=== PATIENT | male | born 1945 | race Caucasian/White ===

== ENCOUNTER 2023-07-14 12:20 | Inpatient (IN) | payer OTHER, SELFPAY ==
[2023-07-14] VITALS (12 sets, daily range): BP systolic 87–164; BP diastolic 52–111; PULSE 72–80; BMI 19.0; BMI 19.1
--- NOTE | 2023-07-14 09:11 | ED.GENMED ---
History of Present Illness
General
Chief Complaint: Fainting/Passed Out
Source: patient and ambulance crew
Exam Limitations: none
Time Seen by Provider: 07/14/23 09:10
History of Present Illness
History of Present Illness:
See MDM
Past History
Past History
ED Past Medical History: Arrthythmia and Other (Parkinson's, restless leg syndrome orthostasis)
ED Past Surgical History: Other (Hernia repair tonsillectomy)
Social History
Tobacco: Non-smoker
Alcohol: None
Drug: None
Personal:
Living: with family
Phy Exam
Physical Exam
Physical Exam:
See MDM
Course
Orders/Labs/Results
Orders:
Orders
07/14/23 09:14
Electrocardiogram (*1) Urgent
Reason for Study: Bradycardia / Tachycardia
EKG- Treatment ONCE
07/14/23 09:20
Diltiazem 125 mg/125 ml Nss [Cardizem] 125 mg in 125 ml IV NOW
Initial dose in mg/hr, then titrate:: 5
Titrate to keep:: Heart rate 80-100 bpm
Titrate by mg/hr:: 5 mg/hr
Frequency of titrations (minutes):: 15
Maximum dose in mg/hr:: 15
Diltiazem HCl [Cardizem] 10 mg IV NOW STA
07/14/23 09:33
Complete Blood Count/With Diff Urgent
Comprehensive Metabolic Panel Urgent
Magnesium Urgent
Manual Differential Urgent
TSH Reflex To Free T4 Urgent
Troponin I Urgent
Abnormal Lab Results
07/14/23
09:33
RBC 4.62 L 10^6/uL
(4.70-6.10)
Plt Count 109 L 10^3/uL
(130-400)
MPV 11.3 H fL
(7.4-10.4)
Lymphocytes (Manual) 19 L %
(20-51)
Monocytes (Manual) 19 H %
(2-9)
BUN 25 H mg/dl
(9-20)
07/14/23 09:33
07/14/23 09:33
Vital Signs
Initial and Last Documented VS:
Initial Vital Signs
Temp Pulse Resp BP Pulse Ox
97.6 F 138 23 164/111 97
07/14/23 09:13 07/14/23 09:13 07/14/23 09:13 07/14/23 09:13 07/14/23 09:13
Last Documented Vital Signs
Temp Pulse Resp BP Pulse Ox
97.6 F 84 16 139/93 97
07/14/23 09:13 07/14/23 10:30 07/14/23 10:30 07/14/23 10:00 07/14/23 10:30
MDM/Problems Addressed
Differential Diagnosis Includes:
HPI and MDM Narrative:
77-year-old male presenting for evaluation of syncope. EMS stating that he has a history of syncope but family was concerned because he had more frequent events overnight. Patient states the symptoms are random
On evaluation patient found to be in A-fib with RVR. Denies chest pain or palpitations. Prior records indicate history of A-fib. Patient does not anticoagulated likely because of his significant fall risk
will start Cardizem
Physical exam
General: weak and frail
HEENT: protecting airway
Neck: appears supple
CV: No evidence of cyanosis. Tachycardic and irregular
Resp: No accessory muscle use
Abd: Non-distended
Extremities: No deformities
Neuro: alert
Psych: Normal affect
Skin: Intact
Problems Addressed including Acute and Chronic Conditions affecting care:
1. A-fib with RVR
Acuity: acute
Prognosis: unstable
Details: Will start Cardizem. Likely the source of syncope
Updates
Patient remains in A-fib while on the Cardizem drip. Will admit with concern for cardiogenic syncope
Patient is not on blood thinners and not a candidate for bedside cardioversion
Differential Diagnosis (but not limited to): Cardiogenic syncope, polypharmacy
Testing considered: D-dimer
Drug therapy (if applicable): OTC meds, please see d/c instruction regarding Rx drugs
Amount and/or Complexity of Data Reviewed
Clinical info obtained from: Patient
External data reviewed: N/A
Labs I independently reviewed (but not limited to): Electrolytes within normal limits
Radiology: N/A,
Pulse Ox: not hypoxic
EKG independently reviewed: A-fib with RVR LVH, no STEMI
Supercharger Mechanic: A-fib
Critical Care: The high probability of a clinically significant, sudden or life threatening deterioration of the cardiovascular system(s) required my full and direct attention, intervention and personal management. The aggregate critical care time
was 33 minutes. This time is in addition to time spent performing reported procedures but includes the following:
[x] Data Review and interpretation
[x] Patient assessment and monitoring of vital signs
[x] Documentation
[x] Medication orders and management
Risk of Complication:
Social Determinants of health: Good social support
Discussed with other providers: Hospitalist
Escalation of Care includes Admit/Obs: Given the rapid A-fib and concern for cardiogenic syncope, will continue IV Cardizem and admit
Occasional wrong word or 'sound a like' substitutions may have occurred due to the inherent limitations of voice recognition software. Read the chart carefully and recognize, using context, where substitutions have occurred.
*Critical Care Note
Total Time (30-74mins, 75-104mins- exclusive of procedures): 33 min
ED Attending Note
-
Portions of this chart may have been created with voice recognition software.� Occasional wrong word or��sound alike� substitutions may have occurred due to the inherent limitations of voice recognition software.
Discharge Plan
Departure
Patient Disposition: Admit
Date of Disposition: 07/14/23
Time of Disposition: 11:06
Admit to: Telemetry
Presentation/result/management discussed w/ accepting MD/DO: Hospitalist
Discharge Problem:
A-fib, Syncope
Prescriptions:
No Action
magnesium oxide 500 MG tablet
500 mg PO QPM
ascorbic acid (vitamin C) [Vitamin C] 500 mg Tablet
500 mg PO DAILY
cholecalciferol (vitamin D3) [Vitamin D3] 125 mcg (5,000 unit) Tablet
125 mcg PO DAILY
cyanocobalamin (vitamin B-12) [Vitamin B-12] 1,000 mcg Tablet
1,000 mcg PO DAILY
calcium carbonate 500 mg calcium (1,250 mg) Tablet
500 mg PO DAILY
diclofenac potassium 50 mg tablet
50 mg PO BID PRN (Reason: restless leg pain)
carbidopa-levodopa 25-100 mg tablet
1 tab PO 6XD
docusate sodium [Colace] 100 mg Capsule
100 mg PO HS
midodrine 5 mg Tablet
5 mg PO TID@0800,1300,1800 Qty: 90 0RF
tramadol 50 mg Tablet
25 mg PO [id number] PRN (Reason: mod severe pain) Qty: 15 0RF
ropinirole 2 mg Tablet
2 mg PO HS Qty: 30 0RF
fludrocortisone 0.1 mg Tablet
0.1 mg PO DAILY Qty: 30 0RF
Referrals:
Rashard Zhu MD [Family Provider] -
Interventions
Interventions:
*Risk Screen - Suicide Last Done: 07/14/23 09:29
*Neglect/Abuse Screening Last Done: 07/14/23 09:29
ED- Fall Risk Assessment Last Done: 07/14/23 09:29
*ED COVID-19 Vaccine History Last Done: 07/14/23 09:29
ED- Cardiac Assessment Last Done: 07/14/23 09:12
Discharge Date and Time
Print Language: GUYANESE
[2023-07-14] MEDS: CARDIZEM 10 MG IV (09:37)
[2023-07-14] MEDS: CARDIZEM 125 IV (09:39)
[2023-07-14 09:43] LABS: Hematocrit 40.2 % (39.0-52.0); Hemoglobin 13.6 g/dL (13.0-18.0); Mean Corp Hgb Conc. 33.8 g/dL (33.0-37.0); Mean Corpuscular Hgb 29.4 pg (27.0-31.0); Red Blood Cell Count 4.62 10^6/uL (4.70-6.10); Red Cell Dist. Width 13.6 % (11.5-14.5); White Blood Cell Count 5.3 10^3/uL (4.8-10.8)
[2023-07-14 09:56] LABS: ALT (SGPT) < 10 U/L (0-50); AST (SGOT) 29 U/L (17-59); Albumin 4.9 g/dl (3.5-5.0); Alkaline Phosphatase 113 U/L (38-126); Blood Urea Nitrogen 25 mg/dl (9-20); Carbon Dioxide 26 mmol/L (22-30); Chloride 103 mmol/L (98-107); Estimated Creatinine Clearance 45 ml/min; Glucose 89 mg/dl (70-99); Magnesium 2.3 mg/dl (1.6-2.3); Potassium 4.2 mmol/L (3.5-5.1); Sodium 140 mmol/L (135-145); Total Protein 7.9 g/dl (6.3-8.2); eGFR > 60.00
[2023-07-14 10:04] LABS: Troponin I 0.016 ng/ml
[2023-07-14 10:45] LABS: Mean Platelet Volume 11.3 fL (7.4-10.4); Platelet Count 109 10^3/uL (130-400)
[2023-07-14 10:46] LABS: Absolute Neutrophils -Man Diff 3.2 10^3/uL (1.4-6.5); Band Neutrophils 0 % (0-3); Eosinophils 1 % (0-6); Lymphocytes 19 % (20-51); Monocytes 19 % (2-9); Segmented Neutrophils 61 % (42-75)
[2023-07-14 10:47] LABS: Normal RBC Morphology No; Platelets Checked YES
[2023-07-14 10:48] LABS: Anisocytosis Slight; Microcytosis FEW
[2023-07-14 10:49] LABS: Acanthocytes FEW; Target Cells FEW
[2023-07-14 10:50] LABS: Ovalocytes FEW; Schistocytes RARE
[2023-07-14 10:54] LABS: Total Cells Counted 100
--- NOTE | 2023-07-14 12:33 | PHANOTE ---
07/14/2023, [facility] rec tech, spoke to pt. and spouse to obtain pt.'s med. history; per spouse and pt., pt. is taking Myrbetriq 25 mg daily; however, could not confirm with pt.'s pharmacy or [facility] records.
[2023-07-14] MEDS: REQUIP 2 MG PO ×2 (12:55→21:06)
--- NOTE | 2023-07-14 13:57 | CON.CAR ---
Consultation
Consultation Request
Date/Time Consultation Requested: 07/14/2023
Date/Time Consultation Performed: 07/14/2023
Requesting Provider: Dr. Beltran
Performing Provider: Dr. Ortiz
Reason for Consultation: Atrial fibrillation/ syncope
Medical History
-
Chief Complaint: Syncope, rapid atrial fibrillation
History of Present Illness:
I had the pleasure to meet Ra Bowser for evaluation of rapid atrial fibrillation after a syncopal episode at home prompting ER evaluation and admission. Ra follows with my colleague, Dr. Toro with a history of orthostatic
hypotension/autonomic dysfunction with underlying Parkinson's. He also has a history of paroxysmal atrial fibrillation first noted in April 2022 not deemed to be an anticoagulation candidate secondary to frequent falls. He also has
pancytopenia, prostate calcifications, GERD, and BPH. He is also followed with neurology for orthostasis and has been maintained on midodrine 5 mg TID as well as fludrocortisone 0.1 mg daily. He reports a fall at home with pain around his rib cage
but no other joint pain or injury. He does live at home with his and daughter in a two-story home with a chairlift and a first-floor bathroom. In the emergency room he was found to be in rapid atrial fibrillation with a heart rate of 131 bpm
placed on IV Cardizem drip. Fortunately he did convert to sinus rhythm and Cardizem drip was discontinued. He denies chest pain suggestive of angina or shortness of breath. No headache or blurred vision. No focal weakness. No abdominal pain.
No fevers or chills. No recent URI or GI illnesses. He reports that his oral intake/hydration has been good.
Past medical history: Parkinson's disease, autonomic dysfunction with orthostatic hypotension, frequent falls, hyperlipidemia, GERD, BPH, history of paroxysmal atrial fibrillation, pancytopenia
Past surgical history: In utero hernia repair, partial left hip replacement, detached retina surgery, T&A
Past Medical History
Past Medical History: Other (See HPI)
Past Surgical History: Other (See HPI)
Social History
Tobacco: Non-Smoker
Alcohol: None
Drug: None
Personal:
Living: With Family
Employment: Retired
Family History
Family History: Reviewed & Not Pertinent
Allergies / Home Medications
Allergy/AdvReac Type Severity Reaction Status Date / Time
Penicillins Allergy rash on Verified 07/14/23 09:21
chest
�Medication �Instructions �Recorded �Confirmed �Type
magnesium oxide 500 mg PO QPM 07/23/18 07/14/23 History
ascorbic acid (vitamin C) 500 mg 500 mg PO DAILY 12/11/21 07/14/23 History
tablet (Vitamin C)
calcium carbonate 500 mg PO NOON 05/17/22 07/14/23 History
carbidopa 25 mg-levodopa 100 mg 1 tab PO QID 05/17/22 07/14/23 History
tablet
cyanocobalamin (vitamin B-12) 1,000 mcg PO DAILY PRN supplement 05/17/22 07/14/23 History
1,000 mcg tablet (Vitamin B-12)
docusate sodium 100 mg capsule 100 mg PO DAILY 06/05/22 07/14/23 History
(Colace)
acetaminophen 500 mg tablet 1,000 mg PO DAILYPRN PRN mild pain 07/14/23 07/14/23 History
(Tylenol Extra Strength)
carbidopa 25 mg-levodopa 100 mg 1 tab PO DAILYPRN PRN parkinson's 07/14/23 07/14/23 History
tablet disease
fludrocortisone 0.1 mg tablet 0.1 mg PO HS 07/14/23 07/14/23 History
midodrine 2.5 mg tablet 2.5 mg PO TID 07/14/23 07/14/23 History
midodrine 5 mg tablet 5 mg PO TID 07/14/23 07/14/23 History
mirabegron 25 mg tablet,extended 25 mg PO DAILY 07/14/23 History
release 24 hr (Myrbetriq)
ropinirole 3 mg tablet 3 mg PO HS 07/14/23 07/14/23 History
Review of Systems
-
History Source: Patient
All other systems: Negative unless noted
Constitutional: No Symptoms
EENT: No Symptoms
Respiratory: No Symptoms
Cardiac: Syncope
Abdomen/GI: No Symptoms
: No Symptoms
Skin: No Symptoms
Neurological: Dizzy and Weakness
Physical Exam
Vital Signs
Temp Pulse Resp BP Pulse Ox
97.6 F 67 22 108/65 97
07/14/23 09:13 07/14/23 13:30 07/14/23 13:30 07/14/23 13:00 07/14/23 11:15
Lab Results
07/14/23 09:33
07/14/23 09:33
Troponin I 0.016 ng/ml 07/14/23 09:33
Physical Exam
General: Other (Frail 77-year-old gentleman appears older than stated age. Marked thoracic kyphosis. Comfortable and jovial at bedside)
HEENT: Normocephalic, Anicteric and Moist Mucous Membranes
Respiratory: Other (Bronchovesicular breath sounds are clear. He is complaining of rib pain without ecchymosis or crepitus on exam)
Cardiac: S1/S2 and Regular Rhythm; Negative Murmur, Rub or Peripheral Edema
GI: Soft, Non Tender, Non Distended and Normal Bowel Sounds
Skin: Warm; Negative Rash
Neuro: AO x 3
Psych: Calm
Impression / Plan
-
Straw Hat Plunger Operator: Dr. Toro
Neurologist: Dr. Hdez
Impression:
Syncope in the setting of rapid atrial fibrillation and known orthostatic hypotension
Recurrent rapid atrial fibrillation status post conversion on Cardizem 07/14/2023
-Not oral anticoagulation candidate secondary to recurrent falls
Parkinson's disease with autonomic dysfunction
Significant orthostatic hypotension
Frequent falls
Hyperlipidemia
BPH
Pancytopenia
Restless leg syndrome
Plan:
Rapid atrial fibrillation with history of PAF
-currently in sinus rhythm with conversion on IV Cardizem
-IV Cardizem drip discontinued
-Unfortunately he will not tolerate AV barbi blocking agents given low blood pressures with orthostatic hypotension
-Not an anticoagulation candidate secondary to frequent falls
-TSH within normal limit
Syncope at home likely related to rapid atrial fibrillation with orthostatic hypotension
-Will continue midodrine but increase to 10 mg TID
-Continue fludrocortisone 0.1 mg daily
-Had a recent echocardiogram 06/06/2022 with normal LV size and systolic function and EF of 60 to 65% with no significant valve abnormalities and no pericardial effusion. Will not repeat echocardiogram at this time
Rib chest wall pain following fall
-Will get chest and rib x-ray in the morning
Parkinson's with autonomic dysfunction/restless leg syndrome
-Patient follows with Dr. Hdez
Autonomic dysfunction with orthostatic hypotension
-Increase midodrine and continue fludrocortisone
-Monitor orthostatic symptoms
Pancytopenia with relatively stable hemoglobin and platelets
Data Reviewed
-
EKG: Tracing Personally Visualized and interpreted
Labs: Labs Reviewed by me
Old Records: Reviewed
[2023-07-14 14:18] LABS: Troponin I 0.016 ng/ml
--- NOTE | 2023-07-14 14:54 | HPS.HSE ---
Family Physician
-
Family Physician: Rashard Zhu
Chief Complaint
-
Syncope
History of Present Illness
77 year old male with advanced Parkinson disease and ?dementia, restless leg syndrome, afib, recurrent issues with syncope most likely 2/2 to autonomic dysfunction, now presenting for recurrent syncope. No reported head strike. Patient's family
was concerned as patient was having recurrent issues with syncope overnight. Denies chest pain, palpitations. Found to be in A-fib with RVR with HR of 138; Otherwise normotensive; afebrile. labs grossly unremarkable. TSH WNL. patient was started
on cardizem ggt and cardiology was consulted.
Medical History
Past Medical History
Past Medical History: Reports Arrhythmia and Other (Paroxysmal atrial fibrillation. Parkinson's disease. Restless leg syndrome.)
Past Surgical History: Reports Other
Social History
Tobacco: Non-smoker
Alcohol: None
Drug: None
Personal:
Living: With Family
Family History
Family History: Not pertinent
Allergies / Home Medications
Allergies reflects when Allergies were last updated in [employer].
Home Medications with original date entered in [employer]
Allergy/Medication List:
Allergies
Allergy/AdvReac Type Severity Reaction Status Date / Time
Penicillins Allergy rash on Verified 06/05/22 12:57
chest
Home Medications
magnesium oxide 500 mg tablet 500 mg PO QPM 07/23/18
ascorbic acid (vitamin C) 500 mg tablet (Vitamin C) 500 mg PO DAILY 12/11/21
cholecalciferol (vitamin D3) 125 mcg (5,000 unit) tablet (Vitamin D3) 125 mcg PO DAILY 12/11/21
calcium carbonate 500 mg calcium (1,250 mg) tablet 500 mg PO DAILY 05/17/22
carbidopa 25 mg-levodopa 100 mg tablet 1 tab PO 6XD 05/17/22
cyanocobalamin (vitamin B-12) 1,000 mcg tablet (Vitamin B-12) 1,000 mcg PO DAILY 05/17/22
diclofenac potassium 50 mg tablet 50 mg PO BID PRN restless leg pain 05/17/22
docusate sodium 100 mg capsule (Colace) 100 mg PO HS 06/05/22
Review of Systems
-
History Source: Patient
A 12 point ROS was completed and negative except as noted: Yes
Physical Exam
Vital Signs
Vital Signs
Temp Pulse Resp BP Pulse Ox
97.7 F 65 20 121/64 97
07/14/23 14:13 07/14/23 14:13 07/14/23 14:13 07/14/23 14:13 07/14/23 14:13
Physical Exam
General: Well Developed and Well Nourished
HEENT: NormoCephalic and Anicteric
Respiratory: Clear
Cardiac: Irregular Rhythm
GI: Non Tender
Rectal: Brown
Musculoskeletal: No Clubbing
Skin: Warm and Dry
Neuro: Awake, Alert, Oriented and AO x 3
Hematologic/Lymphatic: No Lymphadenopathy
Psych: Calm
Laboratory Results
-
07/14/23 09:33
07/14/23 09:33
Laboratory Results
Total Bilirubin 1.0 mg/dl (0.2-1.3) 07/14/23 09:33
AST 29 U/L (17-59) 07/14/23 09:33
ALT < 10 U/L (0-50) 07/14/23 09:33
Alkaline Phosphatase 113 U/L (38-126) 07/14/23 09:33
Troponin I 0.016 ng/ml 07/14/23 13:49
Data Reviewed
-
Lab Data: Labs Reviewed by me
Impression/Plan
-
IMPRESSION:
77 year old male with advanced Parkinson disease and dementia, restless leg syndrome, afib, recurrent issues with syncope most likely 2/2 to autonomic dysfunction, now presenting for recurrent syncope. Found to be in afib with rvr.
PLAN:
#Recurrent Syncope
#history of orthostatic hypotension - exacerbated by autonomic dysfunction in pt with advanced Parkinson's
-possibly exacerbated by Afib with RVR
-cards consulted
-cardizem was attempted in the past but not tolerated due to worsening orthostatics
-Stop cardizem and f/u with cards recs
-Orthostatics
-Abdominal binder
-Cont Midodrine
-cont florinef
-cont tele monitoring
-pt/ot
#Paroxysmal Afib with RVR
-f/u cards recs
-stop Cardizem and monitor
-if recurrent, may opt for amio
-not on anticoag 2/2 to frequent falls and pancytopenia
#DVT ppx
HSQ
Chronc Hx
Advanced Parkinson's disease.
Restless leg syndrome.
Prior history of orthostasis.
Kyphoscoliosis
[2023-07-14] MEDS: HEPARIN 5000 UNITS SC ×2 (17:44→23:29)
[2023-07-14] MEDS: ProAmatine 5 MG PO (17:44)
[2023-07-14] MEDS: SINEMET 25-100 1 TABLET PO ×2 (17:44→21:06)
[2023-07-14] MEDS: ProAmatine PO (17:44)
[2023-07-14] MEDS: FLORINEF 0.1 MG PO (17:44)
[2023-07-14 22:03] LABS: Troponin I < 0.012 ng/ml
[2023-07-15] VITALS (9 sets, daily range): BP systolic 88–183; BP diastolic 54–106; PULSE 67–83
[2023-07-15] MEDS: SINEMET 25-100 1 TABLET PO ×6 (05:36→21:05)
[2023-07-15 05:49] LABS: Hematocrit 38.3 % (39.0-52.0); Mean Corp Hgb Conc. 33.9 g/dL (33.0-37.0); Mean Corpuscular Hgb 29.5 pg (27.0-31.0); Mean Platelet Volume 11.3 fL (7.4-10.4); Platelet Count 101 10^3/uL (130-400); Red Cell Dist. Width 13.4 % (11.5-14.5); White Blood Cell Count 3.7 10^3/uL (4.8-10.8)
[2023-07-15 06:29] LABS: Troponin I < 0.012 ng/ml
[2023-07-15 06:55] LABS: Blood Urea Nitrogen 29 mg/dl (9-20); Calcium 9.8 mg/dl (8.4-10.2); Carbon Dioxide 28 mmol/L (22-30); Chloride 103 mmol/L (98-107); Estimated Creatinine Clearance 45 ml/min; Glucose 90 mg/dl (70-99); Magnesium 2.4 mg/dl (1.6-2.3); Potassium 3.7 mmol/L (3.5-5.1); Sodium 139 mmol/L (135-145); eGFR > 60.00
[2023-07-15 07:22] LABS: TSH Reflex To Free T4 0.61 uIU/ml (0.47-4.68)
[2023-07-15] MEDS: FLORINEF 0.1 MG PO (08:49)
[2023-07-15] MEDS: ProAmatine PO ×2 (08:54→13:10)
[2023-07-15] MEDS: HEPARIN 5000 UNITS SC ×2 (09:59→16:12)
[2023-07-15] MEDS: OSCAL CAL 500 500 MG PO (12:16)
--- NOTE | 2023-07-15 14:17 | W.PN.HOSP.TC ---
Addendum entered and electronically signed by Patrice Beltran MD 07/15/23 14:22:
Nondisplaced subacute partially healed anterolateral right ninth rib fracture
� Pain control
� Follow-up outpatient
Original Note:
Today's Communication/Plan
-
abdominal binder
pt/ot
cards recs
cont midodrine at higher dose
Assessment / Plan
Assessment / Plan
Physical Exam
General: Well Developed and Well Nourished
HEENT: NormoCephalic and Anicteric
Respiratory: Clear
Cardiac: Irregular Rhythm
GI: Non Tender
Rectal: Brown
Musculoskeletal: No Clubbing
Skin: Warm and Dry
Neuro: Awake, Alert, Oriented and AO x 3
Hematologic/Lymphatic: No Lymphadenopathy
Psych: Calm
77 year old male with advanced Parkinson disease and dementia, restless leg syndrome, afib, recurrent issues with syncope most likely 2/2 to autonomic dysfunction, now presenting for recurrent syncope. Found to be in afib with rvr.
PLAN:
#Recurrent Syncope
#history of orthostatic hypotension - exacerbated by autonomic dysfunction in pt with advanced Parkinson's
-possibly exacerbated by Afib with RVR
-cards consulted
-cardizem was attempted in the past but not tolerated due to worsening orthostatics
-Stop cardizem and f/u with cards recs
-Orthostatics
-Abdominal binder
-Cont Midodrine - increase to 10mg tid
-cont florinef
-cont tele monitoring
-pt/ot
#Paroxysmal Afib with RVR
-f/u cards recs
-stop Cardizem and monitor
-if recurrent, may opt for amio
-not on anticoag 2/2 to frequent falls and pancytopenia
#DVT ppx
HSQ
Chronc Hx
Advanced Parkinson's disease.
Restless leg syndrome.
Prior history of orthostasis.
Kyphoscoliosis
Anticipated Discharge: Within 24 hours
Subjective/Interval History
-
Date of Service: July 15, 2023
BPs improved, bp slightly higher with inc dose midodrine
Objective Data
-
Labs:
Laboratory Results
07/15/23
05:39
WBC 3.7 L
Hgb 13.0
Hct 38.3 L
Plt Count 101 L
Sodium 139
Potassium 3.7
Chloride 103
Carbon Dioxide 28
BUN 29 H
Creatinine 1.0
Glucose 90
Calcium 9.8
Vital Signs:
Vital Signs
Temp Pulse Resp BP Pulse Ox
97.4 F 78 16 139/73 97
07/15/23 11:00 07/15/23 13:10 07/15/23 11:00 07/15/23 13:10 07/15/23 11:00
I&O
07/14/23 07/15/23 07/16/23
06:59 06:59 06:59
Intake Total 960 / 960
Output Total 505 / 505
Balance 455 / 455
Review of Systems
-
History Source: Patient
All other systems: Not reviewed unless documented
Physical Exam
-
General: Well Developed and No Apparent Distress
HEENT: Normocephalic, Atraumatic and Moist Mucous Membranes
Respiratory: Clear to Auscultation
Cardiac: Regular Rhythm and S1/S2; Negative Murmur, Rub or Gallop
GI: Soft, Nontender, Nondistended and Normal Bowel Sounds; Negative Organomegaly
Rectal: Deferred by Provider
Musculoskeletal: No Clubbing, No Cyanosis and No Edema
Skin: Negative Rash
Neuro: Nonfocal/Grossly Intact
Data Reviewed
-
Diagnostic Radiology: Image personally visualized and interpreted and Report Reviewed by me
Labs: Labs Reviewed by me (BMP, magnesium)
[2023-07-15] MEDS: TYLENOL 1000 MG PO (16:21)
--- NOTE | 2023-07-15 16:32 | W.PN.CARDCBS ---
Today's Communication / Plan
-
Cont Midodrine, may need to accept some permissive hypertension
Impression / Plan
-
.
Cath Lab Radiological Technologist: Dr. Toro
Neurologist: Dr. Hdez
Impression:
Syncope in the setting of rapid atrial fibrillation and known orthostatic hypotension
Recurrent rapid atrial fibrillation status post conversion on Cardizem 07/14/2023
-Not oral anticoagulation candidate secondary to recurrent falls
Parkinson's disease with autonomic dysfunction
Significant orthostatic hypotension
Frequent falls
Hyperlipidemia
BPH
Pancytopenia
Restless leg syndrome
Plan:
>Rapid atrial fibrillation with history of PAF
-Remains in sinus off IV Cardizem
-He has not been able to tolerate AV barbi blocking agents given low blood pressures with orthostatic hypotension
-Not an anticoagulation candidate secondary to frequent falls
-TSH within normal limit
>Syncope at home likely related to rapid atrial fibrillation with orthostatic hypotension
-Will continue midodrine, increased to 10 mg TID
-Continue fludrocortisone 0.1 mg daily
-Recent echocardiogram 06/06/2022 with normal LV size and systolic function and EF of 60 to 65% with no significant valve abnormalities and no pericardial effusion. No need to repeat echo
-abdominal binder
-check orthostatic vitals
-Will have to accept some permissive HTN
>Rib chest wall pain following fall
-Rib fx noted. Medical therapy.
>Parkinson's with autonomic dysfunction/restless leg syndrome
-Patient follows with Dr. Hdez
>Pancytopenia with relatively stable hemoglobin and platelets
>Restless leg syndrome
-Cont requip. tx as per primary service.
Progress Note - Cath Lab Radiological Technologist
Subjective
Date of Service: July 15, 2023
Pt seen and examined. No cp or dyspnea.
Objective
Labs:
07/15/23 05:39
07/15/23 05:39
Labs
Hgb 13.0 g/dL (13.0-18.0) 07/15/23 05:39
Hct 38.3 % (39.0-52.0) L 07/15/23 05:39
Plt Count 101 10^3/uL (130-400) L 07/15/23 05:39
Sodium 139 mmol/L (135-145) 07/15/23 05:39
Potassium 3.7 mmol/L (3.5-5.1) 07/15/23 05:39
BUN 29 mg/dl (9-20) H 07/15/23 05:39
Creatinine 1.0 mg/dL (0.7-1.3) 07/15/23 05:39
Glucose 90 mg/dl (70-99) 07/15/23 05:39
Troponins
07/14/23 07/14/23 07/14/23
09:33 13:49 21:32
Troponin I 0.016 0.016 < 0.012 D
07/15/23
05:39
Troponin I < 0.012
Vital Signs and I&O:
Vital Signs
Temp Pulse Resp BP Pulse Ox
97.9 F 79 18 183/97 97
07/15/23 15:00 07/15/23 15:00 07/15/23 15:00 07/15/23 15:00 07/15/23 15:00
Vital Signs
Temp Pulse Resp BP Pulse Ox
97.9 F 79 18 183/97 97
07/15/23 15:00 07/15/23 15:00 07/15/23 15:00 07/15/23 15:00 07/15/23 15:00
Intake & Output
07/13/23 07/14/23 07/15/23 07/16/23
06:59 06:59 06:59 06:59
Intake Total 960 / 960
Output Total 505 / 505
Balance 455 / 455
Physical Exam
Physical Exam
General: No acute distress, AAOX3, appears chronically ill
Neck: Negative JVD
Heart: Regular, Negative S3 positive S1/S2, Negative S4, No murmur
Lungs: CTA b/l, negative wheezes/rales/rhonchi
Abd: Positive BS, NT/ND, neg rebound/rigidity/guarding
Ext: Negative cyanosis/clubbing/edema
Neuro: nonfocal
--- NOTE | 2023-07-15 16:41 | CM ---
Alert awake oriented patient who lives with his Makayla in 2 story home with 2 steps to enter and 13 steps to bath/bedroom. He has walker , wc,stair glide.He is assisted all activities of daily living.Advance Directive given.
[facility] hx
Pharmacy [facility]
PCP Dr Zhu
PLAN Will need PT/OT for dc plan
[2023-07-15] MEDS: ProAmatine 10 MG PO (18:40)
[2023-07-15] MEDS: REQUIP 2 MG PO (21:05)
[2023-07-16] VITALS (7 sets, daily range): BP systolic 106–183; BP diastolic 53–91; PULSE 80–82
[2023-07-16] MEDS: HEPARIN 5000 UNITS SC ×4 (00:27→23:32)
[2023-07-16] MEDS: SINEMET 25-100 1 TABLET PO ×6 (05:04→21:20)
[2023-07-16 05:37] LABS: Hematocrit 36.8 % (39.0-52.0); Hemoglobin 12.5 g/dL (13.0-18.0); Mean Corpuscular Hgb 29.3 pg (27.0-31.0); Mean Corpuscular Volume 86.4 fL (80.0-94.0); Mean Platelet Volume 10.9 fL (7.4-10.4); Platelet Count 100 10^3/uL (130-400); Red Blood Cell Count 4.26 10^6/uL (4.70-6.10); Red Cell Dist. Width 13.4 % (11.5-14.5); White Blood Cell Count 3.3 10^3/uL (4.8-10.8)
[2023-07-16 06:05] LABS: Blood Urea Nitrogen 31 mg/dl (9-20); Calcium 9.6 mg/dl (8.4-10.2); Carbon Dioxide 31 mmol/L (22-30); Chloride 103 mmol/L (98-107); Estimated Creatinine Clearance 45 ml/min; Glucose 94 mg/dl (70-99); Magnesium 2.2 mg/dl (1.6-2.3); Potassium 3.8 mmol/L (3.5-5.1); Sodium 138 mmol/L (135-145); eGFR > 60.00
[2023-07-16] MEDS: FLORINEF 0.1 MG PO (09:09)
[2023-07-16] MEDS: ProAmatine PO ×2 (09:10→12:47)
[2023-07-16] MEDS: REQUIP 2 MG PO ×2 (10:32→21:20)
[2023-07-16] MEDS: OSCAL CAL 500 500 MG PO (10:51)
[2023-07-16] MEDS: SENOKOT-S 1 TABLET PO (10:51)
[2023-07-16] MEDS: PACERONE 400 MG PO (11:28)
--- NOTE | 2023-07-16 13:15 | W.PN.HOSP.TC ---
Today's Communication/Plan
-
reduce midodrine
f/u cards recs for afib
Assessment / Plan
Assessment / Plan
Physical Exam
General: Well Developed and Well Nourished
HEENT: NormoCephalic and Anicteric
Respiratory: Clear
Cardiac: Irregular Rhythm
GI: Non Tender
Rectal: Brown
Musculoskeletal: No Clubbing
Skin: Warm and Dry
Neuro: Awake, Alert, Oriented and AO x 3
Hematologic/Lymphatic: No Lymphadenopathy
Psych: Calm
77 year old male with advanced Parkinson disease and dementia, restless leg syndrome, afib, recurrent issues with syncope most likely 2/2 to autonomic dysfunction, now presenting for recurrent syncope. Found to be in afib with rvr.
PLAN:
#Recurrent Syncope
#history of orthostatic hypotension - exacerbated by autonomic dysfunction in pt with advanced Parkinson's
-possibly exacerbated by Afib with RVR
-cards consulted
-cardizem was attempted in the past but not tolerated due to worsening orthostatics
-Stop cardizem and f/u with cards recs
-Orthostatics
-Abdominal binder
-Cont Midodrine - reduce to 5mg TID due to >SBP 180
-cont florinef
-cont tele monitoring
-pt/ot
#Paroxysmal Afib with RVR
-f/u cards recs
-stop Cardizem and monitor
-if recurrent, may opt for amio
-not on anticoag 2/2 to frequent falls and pancytopenia
#DVT ppx
HSQ
Chronc Hx
Advanced Parkinson's disease.
Restless leg syndrome.
Prior history of orthostasis.
Kyphoscoliosis
Anticipated Discharge: Within 24 hours
Subjective/Interval History
-
Date of Service: July 16, 2023
afib with rvr this am; htn - reduce midodrine
Objective Data
-
Labs:
Laboratory Results
07/16/23
05:13
WBC 3.3 L
Hgb 12.5 L
Hct 36.8 L
Plt Count 100 L
Sodium 138
Potassium 3.8
Chloride 103
Carbon Dioxide 31 H
BUN 31 H
Creatinine 1.0
Glucose 94
Calcium 9.6
Vital Signs:
Vital Signs
Temp Pulse Resp BP Pulse Ox
98.5 F 137 18 135/89 96
07/16/23 11:00 07/16/23 11:28 07/16/23 11:00 07/16/23 12:47 07/16/23 11:00
I&O
07/15/23 07/16/23 07/17/23
06:59 06:59 06:59
Intake Total 960 / 960 660 / 660
Output Total 505 / 505 675 / 675
Balance 455 / 455 -15 / -15
Review of Systems
-
History Source: Patient
All other systems: Not reviewed unless documented
Physical Exam
-
General: Well Developed and No Apparent Distress
HEENT: Normocephalic, Atraumatic and Moist Mucous Membranes
Respiratory: Clear to Auscultation
Cardiac: Regular Rhythm and S1/S2; Negative Murmur, Rub or Gallop
GI: Soft, Nontender, Nondistended and Normal Bowel Sounds; Negative Organomegaly
Rectal: Deferred by Provider
Musculoskeletal: No Clubbing, No Cyanosis and No Edema
Skin: Negative Rash
Neuro: Nonfocal/Grossly Intact
Data Reviewed
-
Diagnostic Radiology: Image personally visualized and interpreted and Report Reviewed by me
Labs: Labs Reviewed by me
--- NOTE | 2023-07-16 13:39 | VNURNOTE ---
Home Health Liaison met with patient at 1130 to discuss [facility] nurse/therapy, visits, schedule and homebound status. Patient is agreeable and understands that visits at home will be 2-3 x per week to assess and teach medical management.
[facility] brochure provided with contact information. Patient is aware that [facility] will contact him for start of care in 1-2 days after discharge from .
[facility] referral completed in [facility].
--- NOTE | 2023-07-16 14:40 | VNURNOTE ---
Call to patient's Makayla to discuss [facility] and answer questions.
Makayla is aware to call [facility] to make sure patient is not current, he previously has had PT and she thinks it has ended but will call [facility] to confirm.
[2023-07-16] MEDS: PACERONE 200 MG PO ×2 (16:01→21:20)
--- NOTE | 2023-07-16 16:56 | CM ---
PT said home with PT.
Spoke with she requested [facility] Cheryl notified of referral.
will drive him home.
Hx Parkinson ,Dementia ,restless legs
PLAN Home with [facility] if accepted
[2023-07-16] MEDS: ProAmatine 5 MG PO (17:18)
--- NOTE | 2023-07-16 18:55 | W.PN.CARDCBS ---
Today's Communication / Plan
-
Increase oral fluid intake
Decrease midodrine
Start amiodarone for recurrent atrial fibrillation today
Prognosis guarded
Impression / Plan
-
Impression:
Syncope in the setting of rapid atrial fibrillation and known orthostatic hypotension
Recurrent rapid atrial fibrillation status post conversion on Cardizem 07/14/2023
-Not oral anticoagulation candidate secondary to recurrent falls
Parkinson's disease with autonomic dysfunction
Significant orthostatic hypotension
Frequent falls
Hyperlipidemia
BPH
Pancytopenia
Restless leg syndrome
Plan:
He is now back in atrial fibrillation with a rapid ventricular response. Options are limited. Will start low-dose amiodarone. Hopefully to avoid symptomatic bradycardia. Not an anticoagulation candidate. Would be desirable to avoid pacemaker
implantation.
Will encourage p.o. intake. Given cachexia should he also be on Ensure etc.? I asked nurses to increase water intake by 32 ounces a day
He was hypertensive this morning. Will reduce midodrine back to baseline dose of 7.5 mg 3 times daily. However, orthostasis may become an issue necessitating accepting marked hypertension.
Long-term prognosis limited in the face of profound autonomic failure.
Progress Note - Boarding House Manager
Subjective
Date of Service: July 16, 2023:
Patient was hypertensive this morning, has been receiving midodrine 10 mg 3 times daily. Also still on fludrocortisone, receiving ropinirole 2 mg at bedtime which can exacerbate orthostasis, still requiring Sinemet as well also a contributor to
orthostasis, had recurrent atrial fibrillation today
Allergies to penicillins
Outpatient medications reviewed, midodrine was 7.5 3 times daily
PMH/PSH/SH/FH: Reviewed
Review of systems negative except as noted above
Hemoglobin 12.5, CO2 31 BUN and creatinine 31 and 1.0
Objective
Labs:
07/16/23 05:13
07/16/23 05:13
Labs
Hgb 12.5 g/dL (13.0-18.0) L 07/16/23 05:13
Hct 36.8 % (39.0-52.0) L 07/16/23 05:13
Plt Count 100 10^3/uL (130-400) L 07/16/23 05:13
Sodium 138 mmol/L (135-145) 07/16/23 05:13
Potassium 3.8 mmol/L (3.5-5.1) 07/16/23 05:13
BUN 31 mg/dl (9-20) H 07/16/23 05:13
Creatinine 1.0 mg/dL (0.7-1.3) 07/16/23 05:13
Glucose 94 mg/dl (70-99) 07/16/23 05:13
Troponins
07/14/23 07/14/23 07/14/23
09:33 13:49 21:32
Troponin I 0.016 0.016 < 0.012 D
07/15/23
05:39
Troponin I < 0.012
Vital Signs and I&O:
Vital Signs
Temp Pulse Resp BP Pulse Ox
36.4 C 66 18 147/91 98
07/16/23 15:00 07/16/23 15:00 07/16/23 15:00 07/16/23 17:18 07/16/23 15:00
Vital Signs
Temp Pulse Resp BP Pulse Ox
36.4 C 66 18 147/91 98
07/16/23 15:00 07/16/23 15:00 07/16/23 15:00 07/16/23 17:18 07/16/23 15:00
Intake & Output
07/14/23 07/15/23 07/16/23 07/17/23
07:59 07:59 07:59 07:59
Intake Total 960 / 960 660 / 660 840 / 840
Output Total 505 / 505 675 / 675 150 / 150
Balance 455 / 455 -15 / -15 690 / 690
Physical Exam
Physical Exam
183/83, blood pressure as low as 90/58 yesterday pulse 68, intake was only 660 mL yesterday
Marked kyphosis, no acute distress, lungs are clear, regular rate and rhythm, no murmurs JVD okay, abdomen benign, extremities without much edema
[2023-07-17] VITALS (8 sets, daily range): BP systolic 97–183; BP diastolic 49–93; PULSE 61–74
[2023-07-17] MEDS: SINEMET 25-100 1 TABLET PO ×7 (02:40→21:04)
--- NOTE | 2023-07-17 05:31 | PTCARENOTE ---
At beginning of this RN's shift, rhythm on tele monitor reading Afib HR in 100s. At 0230, Rhythm on tele monitor reading NSR. EKG done to confirm, EKG was SINUS RHYTHM WITH OCCASIONAL PREMATURE VENTRICULAR COMPLEXES, LEFT ANTERIOR FASCICULAR BLOCK
HR 67. Pt offering no complaints, call [facility] within reach, and plan of care ongoing.
[2023-07-17] MEDS: SENOKOT-S 1 TABLET PO (06:30)
[2023-07-17 06:42] LABS: Hematocrit 37.3 % (39.0-52.0); Hemoglobin 12.5 g/dL (13.0-18.0); Mean Corp Hgb Conc. 33.5 g/dL (33.0-37.0); Mean Corpuscular Hgb 29.8 pg (27.0-31.0); Mean Corpuscular Volume 88.8 fL (80.0-94.0); Mean Platelet Volume 11.2 fL (7.4-10.4); Platelet Count 99 10^3/uL (130-400); Red Cell Dist. Width 13.2 % (11.5-14.5); White Blood Cell Count 3.3 10^3/uL (4.8-10.8)
[2023-07-17 07:04] LABS: Blood Urea Nitrogen 32 mg/dl (9-20); Calcium 9.8 mg/dl (8.4-10.2); Carbon Dioxide 26 mmol/L (22-30); Chloride 104 mmol/L (98-107); Estimated Creatinine Clearance 41 ml/min; Glucose 90 mg/dl (70-99); Potassium 3.8 mmol/L (3.5-5.1); Sodium 139 mmol/L (135-145); eGFR > 60.00
--- NOTE | 2023-07-17 08:23 | W.PN.CARDCBS ---
Today's Communication / Plan
-
Amiodarone was started July 16 2023 with PAFib for rate control, continue at TID for at least another 24 hrs.
He is currently in sinus. He did not tolerate AV barbi blockers with hypotension and orthostasis.
He is not an anticoagulation candidate due to frequent falls.
Given hypertension, Midodrine reduced to 7.5 mg TID. May need to accept some permissive hypertension given significant orthostasis. This was reviewed with pt.
Med tx of rib fracture
Abd binder for orthostatic hypotension.
Cont supportive care and encourage PO intake
Long-term prognosis limited in the face of profound autonomic failure.
Impression / Plan
-
.
Impression:
Syncope in the setting of rapid atrial fibrillation and known orthostatic hypotension
Recurrent rapid atrial fibrillation status post conversion on Cardizem 07/14/2023
-Not oral anticoagulation candidate secondary to recurrent falls
Parkinson's disease with autonomic dysfunction
Significant orthostatic hypotension
Frequent falls
Hyperlipidemia
BPH
Pancytopenia
Restless leg syndrome
Plan:
Amiodarone was started July 16 2023 with PAFib for rate control, continue at TID for at least another 24 hrs.
He is currently in sinus. He did not tolerate AV barbi blockers with hypotension and orthostasis.
He is not an anticoagulation candidate due to frequent falls.
Given hypertension, Midodrine reduced to 7.5 mg TID. May need to accept some permissive hypertension given significant orthostasis. This was reviewed with pt.
Med tx of rib fracture
Abd binder for orthostatic hypotension.
Cont supportive care and encourage PO intake
Long-term prognosis limited in the face of profound autonomic failure.
Progress Note - Realtime Captioner
Subjective
Date of Service: July 17, 2023
Pt seen and examined. No cp or dyspnea.
Objective
Labs:
07/17/23 06:10
07/17/23 06:10
Labs
Hgb 12.5 g/dL (13.0-18.0) L 07/17/23 06:10
Hct 37.3 % (39.0-52.0) L 07/17/23 06:10
Plt Count 99 10^3/uL (130-400) L 07/17/23 06:10
Sodium 139 mmol/L (135-145) 07/17/23 06:10
Potassium 3.8 mmol/L (3.5-5.1) 07/17/23 06:10
BUN 32 mg/dl (9-20) H 07/17/23 06:10
Creatinine 1.1 mg/dL (0.7-1.3) 07/17/23 06:10
Glucose 90 mg/dl (70-99) 07/17/23 06:10
Troponins
07/14/23 07/14/23 07/14/23
09:33 13:49 21:32
Troponin I 0.016 0.016 < 0.012 D
07/15/23
05:39
Troponin I < 0.012
Vital Signs and I&O:
Vital Signs
Temp Pulse Resp BP Pulse Ox
97.7 F 70 18 155/83 96
07/17/23 07:00 07/17/23 07:00 07/17/23 07:00 07/17/23 07:00 07/17/23 07:00
Vital Signs
Temp Pulse Resp BP Pulse Ox
97.7 F 70 18 155/83 96
07/17/23 07:00 07/17/23 07:00 07/17/23 07:00 07/17/23 07:00 07/17/23 07:00
Intake & Output
07/15/23 07/16/23 07/17/23 07/18/23
06:59 06:59 06:59 06:59
Intake Total 960 / 960 660 / 660 1080 / 1080
Output Total 505 / 505 675 / 675 550 / 550
Balance 455 / 455 -15 / -15 530 / 530
Physical Exam
Physical Exam
General: No acute distress, AAOX3, appears chronically ill
Neck: Negative JVD
Heart: Regular, Negative S3 positive S1/S2, Negative S4, No murmur
Lungs: CTA b/l, negative wheezes/rales/rhonchi
Abd: Positive BS, NT/ND, neg rebound/rigidity/guarding
Ext: Negative cyanosis/clubbing/edema
Neuro: nonfocal
[2023-07-17] MEDS: ProAmatine 5 MG PO ×3 (09:49→18:09)
[2023-07-17] MEDS: PACERONE 200 MG PO ×3 (09:49→21:11)
[2023-07-17] MEDS: FLORINEF 0.1 MG PO (09:50)
[2023-07-17] MEDS: HEPARIN 5000 UNITS SC ×2 (09:50→15:37)
[2023-07-17] MEDS: OSCAL CAL 500 500 MG PO (12:19)
--- NOTE | 2023-07-17 14:15 | W.PN.HOSP.TC ---
Today's Communication/Plan
-
cont amio
midodrine
Assessment / Plan
Assessment / Plan
Physical Exam
General: Well Developed and Well Nourished
HEENT: NormoCephalic and Anicteric
Respiratory: Clear
Cardiac: Irregular Rhythm
GI: Non Tender
Rectal: Brown
Musculoskeletal: No Clubbing
Skin: Warm and Dry
Neuro: Awake, Alert, Oriented and AO x 3
Hematologic/Lymphatic: No Lymphadenopathy
Psych: Calm
77 year old male with advanced Parkinson disease and dementia, restless leg syndrome, afib, recurrent issues with syncope most likely 2/2 to autonomic dysfunction, now presenting for recurrent syncope. Found to be in afib with rvr.
PLAN:
#Recurrent Syncope
#history of orthostatic hypotension - exacerbated by autonomic dysfunction in pt with advanced Parkinson's
-possibly exacerbated by Afib with RVR
-cards consulted
-cardizem was attempted in the past but not tolerated due to worsening orthostatics
-Stop cardizem and f/u with cards recs
-Orthostatics
-Abdominal binder
-Cont Midodrine - reduce to 5mg TID due to >SBP 180
-Started on amiodarone
-cont florinef
-cont tele monitoring
-pt/ot
#rib fx
-medical management
#Paroxysmal Afib with RVR
-f/u cards recs
-stop Cardizem and monitor
-Amiodarone was started July 16 2023 with PAFib for rate control, continue at TID for at least another 24 hrs
-not on anticoag 2/2 to frequent falls and pancytopenia
#DVT ppx
HSQ
Chronc Hx
Advanced Parkinson's disease. - add ropinrole prn in addition to standing as patient has severe symptoms; understands CV risk factors
Restless leg syndrome.
Prior history of orthostasis.
Kyphoscoliosis
Anticipated Discharge: 24 - 48 hours
Subjective/Interval History
-
Date of Service: July 17, 2023
no acute events
Objective Data
-
Labs:
Laboratory Results
07/17/23
06:10
WBC 3.3 L
Hgb 12.5 L
Hct 37.3 L
Plt Count 99 L
Sodium 139
Potassium 3.8
Chloride 104
Carbon Dioxide 26
BUN 32 H
Creatinine 1.1
Glucose 90
Calcium 9.8
Vital Signs:
Vital Signs
Temp Pulse Resp BP Pulse Ox
97.5 F 62 18 169/82 98
07/17/23 11:00 07/17/23 11:00 07/17/23 11:00 07/17/23 11:00 07/17/23 11:00
I&O
07/16/23 07/17/23 07/18/23
06:59 06:59 06:59
Intake Total 660 / 660 1080 / 1080
Output Total 675 / 675 550 / 550
Balance -15 / -15 530 / 530
Review of Systems
-
History Source: Patient
All other systems: Not reviewed unless documented
Physical Exam
-
General: Well Developed and No Apparent Distress
HEENT: Normocephalic, Atraumatic and Moist Mucous Membranes
Respiratory: Clear to Auscultation
Cardiac: Regular Rhythm and S1/S2; Negative Murmur, Rub or Gallop
GI: Soft, Nontender, Nondistended and Normal Bowel Sounds; Negative Organomegaly
Rectal: Deferred by Provider
Musculoskeletal: No Clubbing, No Cyanosis and No Edema
Skin: Negative Rash
Neuro: Nonfocal/Grossly Intact
Data Reviewed
-
Diagnostic Radiology: Image personally visualized and interpreted and Report Reviewed by me
Labs: Labs Reviewed by me
[2023-07-17] MEDS: REQUIP 2 MG PO ×2 (16:17→21:17)
[2023-07-18] VITALS (9 sets, daily range): BP systolic 128–181; BP diastolic 74–88; PULSE 60–61; O2SAT 99–100
[2023-07-18] MEDS: HEPARIN 5000 UNITS SC ×3 (00:18→17:23)
[2023-07-18] MEDS: SINEMET 25-100 1 TABLET PO ×7 (03:48→20:17)
[2023-07-18 05:36] LABS: Hematocrit 34.4 % (39.0-52.0); Hemoglobin 11.8 g/dL (13.0-18.0); Mean Corp Hgb Conc. 34.3 g/dL (33.0-37.0); Mean Corpuscular Hgb 29.6 pg (27.0-31.0); Mean Corpuscular Volume 86.2 fL (80.0-94.0); Mean Platelet Volume 11.6 fL (7.4-10.4); Platelet Count 99 10^3/uL (130-400); Red Blood Cell Count 3.99 10^6/uL (4.70-6.10); Red Cell Dist. Width 13.2 % (11.5-14.5); White Blood Cell Count 3.3 10^3/uL (4.8-10.8)
[2023-07-18 05:58] LABS: Blood Urea Nitrogen 30 mg/dl (9-20); Calcium 9.5 mg/dl (8.4-10.2); Carbon Dioxide 28 mmol/L (22-30); Chloride 105 mmol/L (98-107); Estimated Creatinine Clearance 45 ml/min; Glucose 95 mg/dl (70-99); Potassium 3.5 mmol/L (3.5-5.1); Sodium 139 mmol/L (135-145); eGFR > 60.00
[2023-07-18] MEDS: PACERONE 200 MG PO ×2 (08:46→20:20)
[2023-07-18] MEDS: ProAmatine 5 MG PO ×3 (08:46→17:25)
[2023-07-18] MEDS: SENOKOT-S 1 TABLET PO (08:46)
[2023-07-18] MEDS: FLORINEF 0.1 MG PO (08:47)
[2023-07-18] MEDS: OSCAL CAL 500 500 MG PO (12:52)
--- NOTE | 2023-07-18 13:53 | W.PN.HOSP.TC ---
Today's Communication/Plan
-
monitor Hr on amio - await cards recs on further changes
neuro consulted for any additional help as ropinrole exacerbates cv risks
Assessment / Plan
Assessment / Plan
Physical Exam
General: Well Developed and Well Nourished
HEENT: NormoCephalic and Anicteric
Respiratory: Clear
Cardiac: Irregular Rhythm
GI: Non Tender
Rectal: Brown
Musculoskeletal: No Clubbing
Skin: Warm and Dry
Neuro: Awake, Alert, Oriented and AO x 3
Hematologic/Lymphatic: No Lymphadenopathy
Psych: Calm
77 year old male with advanced Parkinson disease and dementia, restless leg syndrome, afib, recurrent issues with syncope most likely 2/2 to autonomic dysfunction, now presenting for recurrent syncope. Found to be in afib with rvr.
PLAN:
#Recurrent Syncope
#history of orthostatic hypotension - exacerbated by autonomic dysfunction in pt with advanced Parkinson's
-possibly exacerbated by Afib with RVR
-cards consulted
-cardizem was attempted in the past but not tolerated due to worsening orthostatics
-Stop cardizem and f/u with cards recs
-Orthostatics
-Abdominal binder
-Cont Midodrine - reduce to 5mg TID due to >SBP 180
-Started on amiodarone
-cont florinef
-cont tele monitoring
-pt/ot
#rib fx
-medical management
#Paroxysmal Afib with RVR
-f/u cards recs
-stop Cardizem and monitor
-Amiodarone was started July 16 2023 with PAFib for rate control, continue at TID for at least another 24 hrs
-not on anticoag 2/2 to frequent falls and pancytopenia
#DVT ppx
HSQ
Chronc Hx
Advanced Parkinson's disease. - add ropinrole prn in addition to standing as patient has severe symptoms; understands CV risk factors; consulted neuro for assistance prior to dc
Restless leg syndrome.
Prior history of orthostasis.
Kyphoscoliosis
Anticipated Discharge: 24 - 48 hours
Subjective/Interval History
-
Date of Service: July 18, 2023
slightly rufino now, had pre-syncopal episode yest sitting in chair
Objective Data
-
Labs:
Laboratory Results
07/18/23
05:12
WBC 3.3 L
Hgb 11.8 L
Hct 34.4 L
Plt Count 99 L
Sodium 139
Potassium 3.5
Chloride 105
Carbon Dioxide 28
BUN 30 H
Creatinine 1.0
Glucose 95
Calcium 9.5
Vital Signs:
Vital Signs
Temp Pulse Resp BP Pulse Ox
98.1 F 62 16 128/81 97
07/18/23 12:09 07/18/23 12:09 07/18/23 12:09 07/18/23 12:09 07/18/23 12:09
I&O
07/17/23 07/18/23 07/19/23
06:59 06:59 06:59
Intake Total 1080 / 1080 820 / 820
Output Total 550 / 550 675 / 675
Balance 530 / 530 145 / 145
Review of Systems
-
History Source: Patient
All other systems: Not reviewed unless documented
Data Reviewed
-
Diagnostic Radiology: Image personally visualized and interpreted and Report Reviewed by me
Labs: Labs Reviewed by me
[2023-07-18] MEDS: TYLENOL 1000 MG PO (14:23)
--- NOTE | 2023-07-18 14:43 | CON.NEURO4 ---
Addendum entered and electronically signed by Venkat Medina MD 07/18/23 16:30:
I saw and evaluated the patient I reviewed note by Denise Patterson agree the findings the following comments:
77-year-old male with a past no history of advanced Parkinson's disease, autonomic involvement with orthostatic hypotension, atrial fibrillation presented to hospital with syncope and rapid atrial fibrillation. Continues to have restless leg
symptoms and has had difficult to control orthostatic hypotension.
Neurologic examination shows an awake and alert patient who is conversational with some evidence of mild cognitive impairment, severe parkinsonism and kyphosis seen.
Assessment: Advanced Parkinson's disease with autonomic involvement with significant orthostatic hypotension and probable mild cognitive impairment. Additionally has restless leg syndrome. No anti coagulation given history of falls risk and
thrombocytopenia.
Continues to have significant orthostatic hypotension which is due to Parkinson's disease and possibly some degree of involvement by rapid atrial fibrillation. Restless leg syndrome still bothersome.
Recommendations
-Given advanced Parkinson's disease I discussed with the patient the option for starting with low-dose opioids like oxycodone that may help with the restless leg syndrome which at this point is still bothersome. Discussed with him that there will
be risk of sedation and constipation with this but I feel like for his own comfort that this would be worth a try. Stop tramadol while trying this medicatoin
---Would trial 2.5 mg once daily PRN Oxycodone for restless legs symptoms.
-No changes to his Sinemet regimen
-Would increase Florinef small amount to 0.2 mg daily, otherwise I do not feel there would be any other good options for treating his orthostatic hypotension. Continue the current midodrine dosing. Droxidopa can sometimes be used for patients with
orthostatic hypotension due to Parkinson's disease but has risks of worsening heart arrhythmia and structural heart disease which I do not think are acceptable in this patient
Original Note:
Consultation - Neurology 4
-
CONSULTING PHYSICIAN: Fabio Medina MD
REFERRING PHYSICIAN: Hospitalists/Dr. Beltran
DICTATED BY: CHANO Johnson
DATE/TIME OF REQUEST: 07/18/23
DATE/TIME OF CONSULTATION: 07/18/23
Reason for Consultation: Restless leg syndrome
History of Present Illness:
This is a 77-year-old right-male who has presented to the hospital on 07/14/23 with report of syncope and was found to be in rapid Afib. Patient is known to our Neurology service and is followed by Dr. Hdez as an outpatient for advanced Parkinson
disease with severe autonomic dysfunction/orthostasis, and restless leg syndrome. Neurology is asked to see the patient today due to unrelieved restless leg syndrome. He has previously been on Ropinirole at 10mg, clonazepam, gabapentin, magnesium,
tramadol, and melatonin for RLS with either no improvement, or side effects of lethargy or worsened orthostasis. He was most recently tried on Lyrica 25mg daily but this caused fatigue and did not improve his symptoms. He reports currently taking
ropinirole 2mg BID at 1700 and HS, and occasionally a 2mg PRN dose earlier in the afternoon. While hospitalized he has been severely orthostatic with SBP dropping from 159 to 92. His ropinirole has been decreased to 2mg HS and a PRN 2mg dose which
he has needed every afternoon. He continues on Florinef 0.1mg daily, midodrine 5mg TID, abdominal binder, EFRA stockings, and increased fluid intake for orthostasis. He is taking Sinemet 25-100mg one tablet six times per day. He denies any headache,
dizziness, vision changes, neck/back pain, speech/swallow difficultly, numbness, focal weakness, chest pain, palpitations, and shortness of breath. His only complaint is his RLS in both legs, R>L today. He continues to not be on anticoagulation for
Afib due to his frequent falls and thrombocytopenia.
Past Medical History: Parkinson disease, Afib not on OAC due to fall risk/thrombocytopenia, HLD, orthostatic hypotension, restless leg syndrome, BPH, GERD, diverticulosis, hemorrhoids, colon polyps, prostate calcifications, neutropenia, insomnia
Surgical History: Cardioversion, Inguinal hernia repair, L partial hip replacement, detached retina repair, T&A
Family History: Paternal grandmother- parkinsonism.
Social History: Denies tobacco, alcohol, and illicit drug use.
Allergies: Penicillin.
Home Medications: See below.
Review of Symptoms:
Patient denies any fever, headache, chest pain, shortness of breath, GI or symptoms.
�Per the HPI.�All systems are reviewed negative except above.
Physical Exam:
The patient is afebrile, abdomen is nondistended, breathing is unlabored, skin is warm and dry, no edema.
Neurologic Examination:
The patient is awake, alert and oriented x 3. Head is stooped. He is able to follow commands and answer questions appropriately. There is no aphasia or dysarthria. Speech is hypophonic. On cranial nerve assessment, pupils are 3 mm bilateral, round
and reactive to light and accommodation. Visual hooper are full. Extraocular movements are restricted with upgaze. Facial sensations are intact and bilaterally symmetrical, there is no facial asymmetry. Hearing is intact bilaterally to normal
conversation volume. Tongue palate and uvula are midline. Sternocleidomastoid strengths are full bilaterally. Motor strengths are 5/5 bilateral upper and lower extremities on medical research [place] scale. There is no drift. There is a low
amplitude semi rhythmic tremor in distal BUE, L>R. Muscle fasciculations noted in the forearms. Deep tendon reflexes are 1+ bilateral upper and absent bilateral lower extremities and Babinski is absent bilaterally. Coordination is intact by finger
to nose bilaterally.
Lab Results: See below.
Neuro Imaging: None.
Differentials for the patient's presentation include:
1. Advanced Parkinson disease with severe autonomic dysfunction/orthostasis
2. Restless leg syndrome
3. Afib not on anticoagulation due to falls/thrombocytopenia
Patient has the following risk factors for their symptoms: Advanced parkinson disease
Recommendations:
-Increase Florinef to 0.2mg daily. Continue midodrine 5mg TID.
-Continue abdominal binder, EFRA stockings, slow position changes, increased fluid intake for orthostasis.
-Continue ropinirole 2mg BID PRN.
-Would discontinue tramadol and instead try oxycodone 2.5mg PO once daily PRN RLS. Discussed negative effects of opioids with patient but also limited treatment options.
-Perform leg stretches at bedtime and in first thing in the morning.
-PT/OT evaluations.
-DVT prophylaxis.
-Patient has an outpatient Neurology follow-up appt with Ladi Hagen on 07/24/23 and should keep that appointment in addition to scheduling an appointment with one of the physicians.
Discussed patient care with: Dr. Medina, the patient
Vital Signs and Labs
-
Vital Signs and Labs:
Vital Signs
Temp Pulse Resp BP Pulse Ox
98.1 F 62 16 128/81 97
07/18/23 12:09 07/18/23 12:09 07/18/23 12:09 07/18/23 12:09 07/18/23 12:09
Lab Results
07/18/23 05:12
07/18/23 05:12
Sodium 139 mmol/L (135-145) 07/18/23 05:12
Potassium 3.5 mmol/L (3.5-5.1) 07/18/23 05:12
BUN 30 mg/dl (9-20) H 07/18/23 05:12
Glucose 95 mg/dl (70-99) 07/18/23 05:12
Calcium 9.5 mg/dl (8.4-10.2) 07/18/23 05:12
Medications
-
Active Medications
Generic Name Dose Route Start Last Admin
Trade Name Freq PRN Reason Stop Dose Admin
Acetaminophen 1,000 mg 07/14/23 15:04 07/18/23 14:23
Acetaminophen 500 Mg Tablet PO 08/11/23 15:03 1,000 mg
DAILYPRN PRN Administration
mild pain
Amiodarone HCl 200 mg 07/16/23 16:00 07/18/23 08:46
Amiodarone 200 Mg Tablet PO 08/13/23 15:59 200 mg
TID NORAH Administration
Bisacodyl 10 mg 07/14/23 13:43
Bisacodyl 10 Mg Rectal Suppository RECTAL 08/11/23 13:42
[id number] PRN
constipation
Calcium Carbonate 500 mg 07/15/23 12:00 07/18/23 12:52
Calcium Carbonate 500 Mg Tablet PO 08/12/23 11:59 500 mg
NOON NORAH Administration
Carbidopa/Levodopa 1 tablet 07/14/23 15:04 07/18/23 03:48
Carbidopa (25 Mg)/Levodopa (100 Mg) Regular Release Tablet PO 08/11/23 15:03 1 tablet
DAILYPRN PRN Administration
parkinson's disease
Carbidopa/Levodopa 1 tablet 07/14/23 18:00 07/18/23 14:24
Carbidopa (25 Mg)/Levodopa (100 Mg) Regular Release Tablet PO 08/11/23 17:59 1 tablet
6/D NORAH Administration
Fludrocortisone Acetate 0.1 mg 07/14/23 13:43 07/18/23 08:47
Fludrocortisone Acetate 0.1 Mg Tablet PO 08/11/23 13:42 0.1 mg
DAILY NORAH Administration
Heparin Sodium 5,000 units 07/14/23 16:00 07/18/23 08:47
Heparin 5,000 Units/Ml 1 Ml Vial SC 08/11/23 15:59 5,000 units
Q8 NORAH Administration
Midodrine 5 mg 07/16/23 13:15 07/18/23 12:52
Midodrine 5 Mg Tablet PO 08/11/23 13:42 5 mg
TID@0800,1300,1800 NOARH Administration
Polyethylene Glycol 17 grams 07/14/23 13:43
Polyethylene Glycol Powder 17 Grams Packet PO 08/11/23 13:42
DAILYPRN PRN
constipation
Ropinirole HCl 2 mg 07/14/23 22:00 07/17/23 21:17
Ropinirole 2 Mg Tablet PO 08/11/23 21:59 2 mg
HS NORAH Administration
Ropinirole HCl 2 mg 07/17/23 11:53 07/17/23 16:17
Ropinirole 2 Mg Tablet PO 08/14/23 11:52 2 mg
DAILY PRN Administration
restless leg
Senna/Docusate Sodium 1 tablet 07/14/23 13:43 07/18/23 08:46
Docusate W/Senna (Leslie-Colace) Tablet PO 08/11/23 13:42 1 tablet
BIDPRN PRN Administration
constipation
Sodium Chloride 0 flush 07/14/23 14:00
Sodium Chloride 0.9% (Flush) Syringe IV 08/11/23 13:59
PER PROTOCOL NORAH
Tramadol HCl 25 mg 07/14/23 13:43
Tramadol Hcl 50 Mg Tablet PO 08/11/23 13:42
[id number] PRN
mod severe pain
Home Medications
�Medication �Instructions �Recorded
magnesium oxide 500 mg PO QPM Electrolyte Repletion 07/23/18
ascorbic acid (vitamin C) 500 mg 500 mg PO DAILY Supplement 12/11/21
tablet (Vitamin C)
calcium carbonate 500 mg PO NOON Supplement 05/17/22
carbidopa 25 mg-levodopa 100 mg 1 tab PO QID Neurological Condition 05/17/22
tablet
cyanocobalamin (vitamin B-12) 1,000 mcg PO DAILY PRN supplement 05/17/22
1,000 mcg tablet (Vitamin B-12)
docusate sodium 100 mg capsule 100 mg PO DAILY Constipation 06/05/22
(Colace)
acetaminophen 500 mg tablet 1,000 mg PO DAILYPRN PRN mild pain 07/14/23
(Tylenol Extra Strength)
carbidopa 25 mg-levodopa 100 mg 1 tab PO DAILYPRN PRN parkinson's 07/14/23
tablet disease
fludrocortisone 0.1 mg tablet 0.1 mg PO HS Hormonal Agent 07/14/23
midodrine 2.5 mg tablet 2.5 mg PO TID Blood Pressure 07/14/23
midodrine 5 mg tablet 5 mg PO TID Blood Pressure 07/14/23
mirabegron 25 mg tablet,extended 25 mg PO DAILY Urinary Issue 07/14/23
release 24 hr (Myrbetriq)
ropinirole 3 mg tablet 3 mg PO HS Neurological Condition 07/14/23
--- NOTE | 2023-07-18 15:39 | W.PN.CARDCBS ---
Addendum entered and electronically signed by Magdalean Ortiz DO 07/18/23 18:47:
I saw and examined the patient.
The Iron Miner's note was reviewed and I agree with the note.
Comment: Patient seen and examined. Overall feeling better still complaining of some rib pain and lightheadedness with ambulation during PT earlier today.Does not have compression stockings on or abdominal binder. Patient was found lying in bed
completely supine
General: Frail 77-year-old gentleman with marked thoracic kyphosis.
Heart: Regular,positive S1/S2, No murmur
Lungs: CTA b/l, negative wheezes/rales/rhonchi
Abd: Positive BS, NT/ND, neg rebound/rigidity/guarding
Ext: No edema
Plan:
Rapid atrial fibrillation with history of PAF
-currently in sinus rhythm with conversion on IV Cardizem 07/14/23
-Started on amiodarone 200mg TID for rate control 07/16/23 (1.2g load as of 4PM 07/17). Transitioned to 200mg BID 07/17 due to bradycardia.
-Continue to monitor on telemetry and check EKG tomorrow
-Not anticoagulation candidate due to frequent falls
-TSH within normal limit
Syncope at home likely related to rapid atrial fibrillation with orthostatic hypotension
-Neurology consulted
-Continue midodrine and monitor blood pressure trends.May need to allow for some permissive hypertension give significant orthostasis.
-Continue abdominal binder
-Continue fludrocortisone, Increased by neurology to 0.2 mg daily
-Had a recent echocardiogram 06/06/2022 with normal LV size and systolic function and EF of 60 to 65% with no significant valve abnormalities and no pericardial effusion. Will not repeat echocardiogram at this time
Rib chest wall pain following fall
-Rib x-rays 07/15/2023 with subacute nondisplaced partially healed anterolateral right ninth rib fracture.
Parkinson's with autonomic dysfunction/restless leg syndrome
-Patient follows with Dr. Hdez
-Neurology consulted
Pancytopenia with relatively stable hemoglobin and platelets
Discharge planning
Original Note:
Today's Communication / Plan
-
Remains in SR.
Continue amio at lower dose 200mg BID
Midodrine reduced to 5mg TID
Follow BP, follow on telemetry.
Follow up appt arranged
Impression / Plan
-
Therapeutic Recreation Specialist: Dr. JAYLON Toro
Impression:
Presented with syncope in the setting of rapid afib and orthostatic hypotension
Paroxysmal atrial fibrillation
Not oral anticoagulation candidate secondary to recurrent falls
Parkinson's disease with autonomic dysfunction
Significant orthostatic hypotension
Frequent falls
Hyperlipidemia
BPH
Pancytopenia
Restless leg syndrome
Echo 06/06/2022: EF 60-65%, no significant valvular disease
Plan:
-Presented with syncope in the setting of rapid afib and orthostatic hypotension.
-Converted to SR while on cardizem gtt 07/14/23. Remains in SR on review of telemetry.
-Started on amiodarone 200mg TID for rate control 07/16/23 (1.2g load as of 4PM 07/17). Transitioned to 200mg BID 07/17 due to bradycardia.
-Follow HRs on telemetry overnight and consider discharging on 200mg daily if continues to be bradycardic
-Previously has not tolerated AV barbi blockers due to hypotension and orthostasis.
-Not anticoagulation candidate due to frequent falls.
-HTN noted this admission and midodrine reduced to 5mg TID. May need to allow for some permissive hypertension give significant orthostasis.
-Continue abdominal binder
-Follow up arranged w/ Dr. Toro.
Progress Note - Therapeutic Recreation Specialist
Subjective
Date of Service: July 18, 2023
Still w/ dizziness with position change
Objective
Labs:
07/18/23 05:12
07/18/23 05:12
Labs
Hgb 11.8 g/dL (13.0-18.0) L 07/18/23 05:12
Hct 34.4 % (39.0-52.0) L 07/18/23 05:12
Plt Count 99 10^3/uL (130-400) L 07/18/23 05:12
Sodium 139 mmol/L (135-145) 07/18/23 05:12
Potassium 3.5 mmol/L (3.5-5.1) 07/18/23 05:12
BUN 30 mg/dl (9-20) H 07/18/23 05:12
Creatinine 1.0 mg/dL (0.7-1.3) 07/18/23 05:12
Glucose 95 mg/dl (70-99) 07/18/23 05:12
Vital Signs and I&O:
Vital Signs
Temp Pulse Resp BP Pulse Ox
98.1 F 62 16 128/81 97
07/18/23 12:09 07/18/23 12:09 07/18/23 12:09 07/18/23 12:09 07/18/23 12:09
Vital Signs
Temp Pulse Resp BP Pulse Ox
98.1 F 62 16 128/81 97
07/18/23 12:09 07/18/23 12:09 07/18/23 12:09 07/18/23 12:09 07/18/23 12:09
Intake & Output
07/16/23 07/17/23 07/18/23 07/19/23
06:59 06:59 06:59 06:59
Intake Total 660 / 660 1080 / 1080 820 / 820
Output Total 675 / 675 550 / 550 675 / 675
Balance -15 / -15 530 / 530 145 / 145
[2023-07-18] MEDS: PACERONE PO (17:30)
[2023-07-18] MEDS: REQUIP 2 MG PO (21:34)
[2023-07-19] MEDS: HEPARIN 5000 UNITS SC ×2 (00:09→09:20)
[2023-07-19 03:50] VITALS: BP 138/69
[2023-07-19] MEDS: REQUIP 2 MG PO (04:46)
[2023-07-19] MEDS: SINEMET 25-100 1 TABLET PO ×3 (05:24→12:42)
[2023-07-19 05:39] LABS: Hematocrit 36.7 % (39.0-52.0); Hemoglobin 12.2 g/dL (13.0-18.0); Mean Corp Hgb Conc. 33.2 g/dL (33.0-37.0); Mean Corpuscular Hgb 29.5 pg (27.0-31.0); Mean Corpuscular Volume 88.6 fL (80.0-94.0); Mean Platelet Volume 11.7 fL (7.4-10.4); Platelet Count 104 10^3/uL (130-400); Red Blood Cell Count 4.14 10^6/uL (4.70-6.10); Red Cell Dist. Width 13.2 % (11.5-14.5); White Blood Cell Count 3.2 10^3/uL (4.8-10.8)
[2023-07-19 06:11] LABS: Blood Urea Nitrogen 28 mg/dl (9-20); Calcium 9.8 mg/dl (8.4-10.2); Carbon Dioxide 25 mmol/L (22-30); Chloride 105 mmol/L (98-107); Estimated Creatinine Clearance 45 ml/min; Glucose 83 mg/dl (70-99); Potassium 3.6 mmol/L (3.5-5.1); Sodium 140 mmol/L (135-145); eGFR > 60.00
[2023-07-19 07:54] VITALS: BP 155/78
[2023-07-19] MEDS: ProAmatine 5 MG PO ×2 (09:19→12:42)
[2023-07-19] MEDS: PACERONE 200 MG PO (09:20)
[2023-07-19] MEDS: FLORINEF 0.2 MG PO (09:20)
[2023-07-19 10:15] VITALS: BP 113/55; BP 134/99; PULSE 68
[2023-07-19 11:06] VITALS: BP 122/56
--- NOTE | 2023-07-19 12:15 | W.PN.CARDCBS ---
Today's Communication / Plan
-
Continue aggressive treatment of known orthostatic hypotension and allow some permissive hypertension
Continue amiodarone 200 mg daily for history of PAF
Not an anticoagulation candidate due to frequent falls
Appreciate neurology input and recommended outpatient neurology follow-up
Outpatient cardiac follow-up with Dr. Toro to be arranged
Will sign off, recall if needed
Impression / Plan
-
Director Of Student Financial Services: Dr. JAYLON Toro
Impression:
Presented with syncope in the setting of rapid afib and orthostatic hypotension
Paroxysmal atrial fibrillation
Not oral anticoagulation candidate secondary to recurrent falls
Parkinson's disease with autonomic dysfunction
Significant orthostatic hypotension
Frequent falls
Hyperlipidemia
BPH
Pancytopenia
Restless leg syndrome
Echo 06/06/2022: EF 60-65%, no significant valvular disease
Plan:
Rapid atrial fibrillation with history of PAF
-currently in sinus rhythm with conversion on IV Cardizem 07/14/23
-Started on amiodarone for rate control 07/16/23 (1.2g load as of 4PM 07/17). Plan to discharge on amiodarone 200 mg daily secondary to sinus bradycardia
-Telemetry with sinus bradycardia no significant pauses or recurrent tachyarrhythmias.
-Twelve-lead EKG with stable QT C interval
-Not anticoagulation candidate due to frequent falls
-TSH within normal limit
Syncope at home likely related to rapid atrial fibrillation with orthostatic hypotension
-Neurology consulted
-Continue midodrine and monitor blood pressure trends.May need to allow for some permissive hypertension give significant orthostasis.
-Continue abdominal binder
-Continue fludrocortisone, Increased by neurology to 0.2 mg daily
-Had a recent echocardiogram 06/06/2022 with normal LV size and systolic function and EF of 60 to 65% with no significant valve abnormalities and no pericardial effusion. Will not repeat echocardiogram at this time
Rib chest wall pain following fall
-Rib x-rays 07/15/2023 with subacute nondisplaced partially healed anterolateral right ninth rib fracture.
Parkinson's with autonomic dysfunction/restless leg syndrome
-Patient follows with Dr. Hdez
-Neurology consulted
Pancytopenia with relatively stable hemoglobin and platelets
Outpatient follow-up with Dr. Toro to be arranged
Discharge planning per primary
We will sign off, recall if needed
Progress Note - Director Of Student Financial Services
Subjective
Date of Service: July 19, 2023
Patient was seen and examined. Overall feeling better and denies dizziness. Had a rough night of sleep secondary to restless leg syndrome. No chest pain or pressure. No palpitations
Objective
Labs:
07/19/23 05:15
07/19/23 05:15
Labs
Hgb 12.2 g/dL (13.0-18.0) L 07/19/23 05:15
Hct 36.7 % (39.0-52.0) L 07/19/23 05:15
Plt Count 104 10^3/uL (130-400) L 07/19/23 05:15
Sodium 140 mmol/L (135-145) 07/19/23 05:15
Potassium 3.6 mmol/L (3.5-5.1) 07/19/23 05:15
BUN 28 mg/dl (9-20) H 07/19/23 05:15
Creatinine 1.0 mg/dL (0.7-1.3) 07/19/23 05:15
Glucose 83 mg/dl (70-99) 07/19/23 05:15
Vital Signs and I&O:
Vital Signs
Temp Pulse Resp BP Pulse Ox
98.4 F 58 17 122/56 94
07/19/23 11:06 07/19/23 11:06 07/19/23 11:06 07/19/23 11:06 07/19/23 11:06
Vital Signs
Temp Pulse Resp BP Pulse Ox
98.4 F 58 17 122/56 94
07/19/23 11:06 07/19/23 11:06 07/19/23 11:06 07/19/23 11:06 07/19/23 11:06
Intake & Output
07/17/23 07/18/23 07/19/23 07/20/23
06:59 06:59 06:59 06:59
Intake Total 1080 / 1080 820 / 820 1020 / 1020
Output Total 550 / 550 675 / 675 1150 / 1150
Balance 530 / 530 145 / 145 -130 / -130
Physical Exam
Physical Exam
General: Frail 77-year-old gentleman with marked thoracic kyphosis.
Heart: Regular,positive S1/S2, No murmur
Lungs: CTA b/l, negative wheezes/rales/rhonchi
Abd: Positive BS, NT/ND, neg rebound/rigidity/guarding
Ext: No edema
--- NOTE | 2023-07-19 12:41 | W.PN.HOSP.TC ---
Addendum entered and electronically signed by Patrice Beltran MD 07/19/23 17:58:
[id number]
Original Note:
Today's Communication/Plan
-
amiodarone
increase Florinef .2 mg
Use oxycodone as needed for right leg syndrome
Continue ropinirole 4 mg nightly
Follow-up PCP, neurology, cardiology outpatient
Assessment / Plan
Assessment / Plan
Physical Exam
General: Well Developed and Well Nourished
HEENT: NormoCephalic and Anicteric
Respiratory: Clear
Cardiac: Irregular Rhythm
GI: Non Tender
Rectal: Brown
Musculoskeletal: No Clubbing
Skin: Warm and Dry
Neuro: Awake, Alert, Oriented and AO x 3
Hematologic/Lymphatic: No Lymphadenopathy
Psych: Calm
77 year old male with advanced Parkinson disease and dementia, restless leg syndrome, afib, recurrent issues with syncope most likely 2/2 to autonomic dysfunction, now presenting for recurrent syncope. Found to be in afib with rvr.
PLAN:
#Recurrent Syncope
#history of orthostatic hypotension - exacerbated by autonomic dysfunction in pt with advanced Parkinson's
-possibly exacerbated by Afib with RVR
-cards consulted
-cardizem was attempted in the past but not tolerated due to worsening orthostatics
-Stop cardizem and f/u with cards recs
-Orthostatics
-Abdominal binder
-Cont Midodrine - reduce to 5mg TID due to >SBP 180
-Started on amiodarone 200mg daily for afib
-increase florinef
-cont tele monitoring
-pt/ot
#rib fx
-medical management
#Paroxysmal Afib with RVR
-f/u cards recs
-stop Cardizem and monitor
-Amiodarone was started July 16 2023 with PAFib for rate control
-not on anticoag 2/2 to frequent falls and pancytopenia
#DVT ppx
HSQ
Chronc Hx
Advanced Parkinson's disease. - consulted neuro for assistance prior to dc. Keep Ropinrole at 4mg qhs and avoid PRN. use oxycodone to assist with restless leg -: patient made aware of risks of drowsiness
Restless leg syndrome.
Prior history of orthostasis.
Kyphoscoliosis
More than 30 minutes spent in discharge including
Final examination of the patient
Summarizing hospital stay
Instructions for continuing care to all relevant caregivers
Preparation of discharge records, prescriptions, and referral forms
Total time spent (35 in minutes):
Anticipated Discharge: Today
Subjective/Interval History
-
Date of Service: July 19, 2023
adjusted medications, using oxy for restless leg
Objective Data
-
Labs:
Laboratory Results
07/19/23
05:15
WBC 3.2 L
Hgb 12.2 L
Hct 36.7 L
Plt Count 104 L
Sodium 140
Potassium 3.6
Chloride 105
Carbon Dioxide 25
BUN 28 H
Creatinine 1.0
Glucose 83
Calcium 9.8
Vital Signs:
Vital Signs
Temp Pulse Resp BP Pulse Ox
98.4 F 58 17 122/56 94
07/19/23 11:06 07/19/23 11:06 07/19/23 11:06 07/19/23 11:06 07/19/23 11:06
I&O
07/18/23 07/19/23 07/20/23
06:59 06:59 06:59
Intake Total 820 / 820 1020 / 1020
Output Total 675 / 675 1150 / 1150
Balance 145 / 145 -130 / -130
Review of Systems
-
History Source: Patient
All other systems: Not reviewed unless documented
Data Reviewed
-
Diagnostic Radiology: Image personally visualized and interpreted and Report Reviewed by me
Labs: Labs Reviewed by me
[2023-07-19] MEDS: OSCAL CAL 500 500 MG PO (12:42)
--- NOTE | 2023-07-19 12:44 | W.DS.TRANS ---
DC Summary - Assistant To The Dean
-
Discharge Instructions:
Sleep Apnea Risk Low
Discharge Diagnosis/Procedures Rapid atrial fibrillation with history of PAF
Syncope at home likely related to rapid atrial
fibrillation with orthostatic hypotension
Parkinson's with autonomic dysfunction/restless
leg syndrome
Diet Low Cholesterol,Low Fat
Activity As tolerated,Other activity
Additional Activity Monitor blood pressures closely, especially with
ambulation to avoid presyncope/syncope episodes
Instructions:
Stand-Alone Forms:
Changes to Home Medications: Yes
Discharge Medications:
DC Medications w/original date entered in [employer]
magnesium oxide 500 mg PO QPM Electrolyte Repletion 07/23/18
ascorbic acid (vitamin C) 500 mg tablet (Vitamin C) 500 mg PO DAILY Supplement 12/11/21
calcium carbonate 500 mg PO NOON Supplement 05/17/22
carbidopa 25 mg-levodopa 100 mg tablet 1 tab PO QID Neurological Condition 05/17/22
cyanocobalamin (vitamin B-12) 1,000 mcg tablet (Vitamin B-12) 1,000 mcg PO DAILY PRN supplement 05/17/22
docusate sodium 100 mg capsule (Colace) 100 mg PO DAILY Constipation 06/05/22
acetaminophen 500 mg tablet (Tylenol Extra Strength) 1,000 mg PO DAILYPRN PRN mild pain 07/14/23
carbidopa 25 mg-levodopa 100 mg tablet 1 tab PO DAILYPRN PRN parkinson's disease 07/14/23
fludrocortisone 0.1 mg tablet 0.1 mg PO HS Hormonal Agent 07/14/23
mirabegron 25 mg tablet,extended release 24 hr (Myrbetriq) 25 mg PO DAILY Urinary Issue 07/14/23
amiodarone 200 mg tablet (Pacerone) 200 mg PO DAILY 30 days #30 tabs 07/19/23
fludrocortisone 0.1 mg tablet 0.2 mg (2 x 0.1 mg) PO DAILY 30 days #60 tabs 07/19/23
midodrine 5 mg tablet 5 mg PO TID@0800,1300,1800 30 days #90 tabs 07/19/23
oxycodone 5 mg tablet 2.5 mg (1/2 x 5 mg) PO DAILYPRN PRN Restless legs symptoms 3 days #10 tabs 07/19/23
ropinirole 4 mg tablet 4 mg PO HS #30 tabs 07/19/23
sennosides 8.6 mg-docusate sodium 50 mg tablet (Stool Softener-Stimulant Laxative) 1 tab PO BIDPRN PRN constipation #100 tabs 07/19/23
Home Medication Changes
amiodarone 200 mg tablet (Pacerone) 200 mg PO DAILY 30 days #30 tabs 07/19/23
fludrocortisone 0.1 mg tablet 0.2 mg (2 x 0.1 mg) PO DAILY 30 days #60 tabs 07/19/23
midodrine 5 mg tablet 5 mg PO TID@0800,1300,1800 30 days #90 tabs 07/19/23
oxycodone 5 mg tablet 2.5 mg (1/2 x 5 mg) PO DAILYPRN PRN Restless legs symptoms 3 days #10 tabs 07/19/23
ropinirole 4 mg tablet 4 mg PO HS #30 tabs 07/19/23
sennosides 8.6 mg-docusate sodium 50 mg tablet (Stool Softener-Stimulant Laxative) 1 tab PO BIDPRN PRN constipation #100 tabs 07/19/23
Pending Results: No
[2023-07-19 15:00] VITALS: BP 115/66
--- NOTE | 2023-07-19 15:35 | CM ---
MD entered order for discharge.
[facility] as per [facility] accepted pt.
Spoke with patient he agreed with dc to home with [facility].
Makayla will drive him home.
IMM reviewed with pt and IMM signed on chart.
PLAN Home with [facility]
== END 2023-07-19 15:24 | disposition home health service (06) | DRG 74 ==
LOC: 3 WEST ACU 12:20
PROVIDERS: ADMITTING PHYSICIAN Internal Medicine; CONSULT PHYSICIAN Internal Medicine Cardiovascular Disease; EMERGENCY PHYSICIAN Student in an Organized Health Care Education/Training Program; FAMILY PHYSICIAN Family Medicine; OTHER PHYSICIAN Student in an Organized Health Care Education/Training Program
DX: G90.9 Disorder of the autonomic nervous system, unspecified (principal); D61.818 Other pancytopenia; S22.31XA Fracture of one rib, right side, initial encounter for closed fracture; F02.818 Dementia in other diseases classified elsewhere, unspecified severity, with other behavioral disturbance; I48.0 Paroxysmal atrial fibrillation; G47.00 Insomnia, unspecified; I95.1 Orthostatic hypotension; G20.A1 Parkinson's disease without dyskinesia, without mention of fluctuations; G25.81 Restless legs syndrome; W19.XXXA Unspecified fall, initial encounter
CPT/HCPCS: 71111; 80048; 80053; 83735; 84443; 84484; 85025; 85027; 93005; 96374; 97116; 97162; 97166; 97530; 97535; 99291

== ENCOUNTER → 2023-10-30 14:03 | Outpatient (REF) | payer OTHER, SELFPAY | LOC: RAD 14:03 | PROVIDERS: ATTENDING PHYSICIAN Internal Medicine Cardiovascular Disease | DX: I10 Essential (primary) hypertension (principal); R33.9 Retention of urine, unspecified | CPT/HCPCS: 76775 ==

== ENCOUNTER → 2024-01-24 11:34 | Outpatient (REF) | payer OTHER, SELFPAY | LOC: RAD 11:34 | PROVIDERS: ATTENDING PHYSICIAN Internal Medicine Cardiovascular Disease; FAMILY PHYSICIAN Family Medicine | DX: I48.0 Paroxysmal atrial fibrillation (principal); Z79.899 Other long term (current) drug therapy | CPT/HCPCS: 71046 ==

== ENCOUNTER 2024-08-26 21:26 | Inpatient (IN) | payer OTHER, SELFPAY ==
[2024-08-26] VITALS (17 sets, daily range): BP systolic 80–142; BP diastolic 49–75; BMI 19.1; BMI 18.0
--- NOTE | 2024-08-26 14:55 | ED.GENMED ---
History of Present Illness
<Patel Gates PA-C - Last Filed: 08/26/24 19:50>
General
Chief Complaint: Fatigue
Source: patient and ambulance crew
Time Seen by Provider: 08/26/24 14:48
History of Present Illness
History of Present Illness:
78-year-old male with past medical history of Parkinson's disease, paroxysmal atrial fibrillation, hyperlipidemia, GERD, BPH presenting to the ER for evaluation of reported diarrhea at home over the last 1 to 2 days, patient stating that he is gone
about 1-2 times every day and this is accompanied with generalized weakness and fatigue. EMS reports that family was on their way to bring the patient to the ER but he was too weak to get him to the ER which is why they were contacted. EMS reports
that patient's blood pressure was fluctuating between 90-140 systolically and that while family reported some generalized confusion over the last 24 hours they state patient was answering all her questions appropriately. Patient unsure if he has
been on any antibiotics recently, no known sick contacts. No reported fevers or infectious symptoms.
Past History
<Patel Gates PA-C - Last Filed: 08/26/24 19:50>
Past History
ED Past Medical History: Arrthythmia, Hypercholesterolemia and Other (Parkinson's, restless leg syndrome orthostasis)
ED Past Surgical History: Orthopedic, Tonsilectomy and Other (Hernia repair tonsillectomy)
Social History
Tobacco: Non-smoker
Alcohol: None
Drug: None
Personal:
Living: with family
Review of Systems
<Patel Gates PA-C - Last Filed: 08/26/24 19:50>
Review of Systems
All Other Systems: ROS reviewed and negative except as documented in HPI and ROS
Phy Exam
<Patel Gates PA-C - Last Filed: 08/26/24 19:50>
Physical Exam
Physical Exam:
GENERAL: Alert , in no apparent distress, appears older than stated age, somewhat contracted/rigid but patient reports this is baseline for him
EYE: clear conjunctiva b/l
HEAD: NCAT
ENT: o/p clr, mmm.
CARDIAC: Borderline tachycardic rate, regular rhythm
LUNGS: Clear breath sounds bilaterally, no acute respiratory distress, no wheezes/rales/rhonchi
ABDOMEN: Soft, without focal tenderness, no r/g, no cvat
RECTAL EXAM: Patient has melanotic stool within his briefs, heme positive
NEUROLOGICAL: Alert and oriented
SKIN: Warm and dry, skin intact. Pale
MUSCULOSKELETAL: No edema, well perfused.
PSYCH: Normal and appropriate interaction.
Scores
<Patel Gates PA-C - Last Filed: 08/26/24 19:50>
Heart Failure Risk
Heart Failure Risk Score: Not Applicable
Heart Score for Chest Pain Patients
STEMI patient?: Not applicable
Withdrawal Assessment of Alcohol
Withdrawal Assessment Completed?: Not applicable
Course
<Patel Gates PA-C - Last Filed: 08/26/24 19:50>
Orders/Labs/Results
Orders:
Orders
08/26/24 14:49
STOOL [C difficile Antigen & Toxins] Urgent
TERRIE Source: Feces/Stool
Specimen Description:
Stool Culture Urgent
TERRIE Source: Feces/Stool
Specimen Description:
08/26/24 14:54
0.9% Sodium Chloride 1000 ml [Nss] 1,000 ml IV BOLUS
08/26/24 15:00
Electrocardiogram (*1) Urgent
Reason for Study: Fatigue / Weakness
EKG- Treatment ONCE
08/26/24 15:12
Type+Screen Urgent
Complete Blood Count/With Diff Urgent
Comprehensive Metabolic Panel Urgent
Lactic Acid Q4H
Comment: CANCEL 2nd LACTIC ACID IF 1st LACTIC ACID IS LESS THAN 2
PTT Urgent
Prothrombin Time Urgent
08/26/24 15:13
Blood Culture Q30M
TERRIE Source: Blood/Venous
Specimen Description:
Blood Culture Q30M
TERRIE Source: Blood/Venous
Specimen Description:
08/26/24 15:15
Lactic Acid Q4H
Comment: CANCEL 2nd LACTIC ACID IF 1st LACTIC ACID IS LESS THAN 2
08/26/24 16:18
0.9% Sodium Chloride 500 ml [Nss] 500 ml IV BOLUS
08/26/24 16:19
Piperacillin/Tazo 3.375 Gram [Zosyn] 3.375 gram in 50 ml IV NOW
08/26/24 16:57
Acetaminophen [Tylenol] 650 mg PO NOW STA
08/26/24 17:07
Carbidopa/Levodopa [Sinemet 25-100] 1 tablet PO NOW STA
08/26/24 17:26
0.9% Sodium Chloride 500 ml [Nss] 500 ml IV BOLUS
08/26/24 17:46
Basic Metabolic Panel Urgent
08/26/24 18:35
CT Abd/pelvis W Iv Cont Urgent
Comment:
Reason For Exam: abd pain, blood in stool, fever
Abnormal Lab Results
08/26/24 08/26/24
15:12 17:46
WBC 30.6 H 10^3/uL
(4.8-10.8)
RBC 4.01 L 10^6/uL
(4.70-6.10)
Hgb 12.0 L g/dL
(13.0-18.0)
Hct 36.1 L %
(39.0-52.0)
Plt Count 98 L 10^3/uL
(130-400)
MPV 12.1 H fL
(7.4-10.4)
Abs Immat Gran (auto) 0.5 H 10^3/uL
(0-0.05)
Absolute Neuts (auto) 26.9 H 10^3/uL
(1.4-6.5)
Absolute Lymphs (auto) 0.7 L 10^3/uL
(1.2-3.4)
Absolute Monos (auto) 2.4 H 10^3/uL
(0.1-0.6)
Immature Gran % 1.7 H %
(0-0.5)
Neutrophils % 88.0 H %
(42.2-75.2)
Lymphocytes % 2.3 L %
(20.5-51.1)
PT 16.6 H Sec
(11.4-14.6)
Chloride 111 H mmol/L
(98-107)
BUN 51 H mg/dl 50 H mg/dl
(9-20) (9-20)
Creatinine 1.9 H mg/dL 1.7 H mg/dL
(0.7-1.3) (0.7-1.3)
Glucose 130 H mg/dl 119 H mg/dl
(70-99) (70-99)
Lactic Acid 2.8 H mmol/L
(0.7-2.0)
Calcium 8.0 L mg/dl
(8.4-10.2)
08/26/24 15:12
08/26/24 17:46
Vital Signs
Initial and Last Documented VS:
Initial Vital Signs
Temp
101.4 F H
08/26/24 14:58
Last Documented Vital Signs
Temp Pulse Resp BP Pulse Ox
101.4 F H 64 18 107/67 85
08/26/24 14:58 08/26/24 18:40 08/26/24 18:40 08/26/24 18:40 08/26/24 18:40
Dispatch Specialist consulted with Physician
Dispatch Specialist consulted with physician?: Yes
Name of Physician Consulted: Dr. Harding
<Sachin Harding MD - Last Filed: 08/26/24 19:47>
Orders/Labs/Results
Orders:
Orders
08/26/24 14:49
STOOL [C difficile Antigen & Toxins] Urgent
TERRIE Source: Feces/Stool
Specimen Description:
Stool Culture Urgent
TERRIE Source: Feces/Stool
Specimen Description:
08/26/24 14:54
0.9% Sodium Chloride 1000 ml [Nss] 1,000 ml IV BOLUS
08/26/24 15:00
Electrocardiogram (*1) Urgent
Reason for Study: Fatigue / Weakness
EKG- Treatment ONCE
08/26/24 15:12
Type+Screen Urgent
Complete Blood Count/With Diff Urgent
Comprehensive Metabolic Panel Urgent
Lactic Acid Q4H
Comment: CANCEL 2nd LACTIC ACID IF 1st LACTIC ACID IS LESS THAN 2
PTT Urgent
Prothrombin Time Urgent
08/26/24 15:13
Blood Culture Q30M
TERRIE Source: Blood/Venous
Specimen Description:
Blood Culture Q30M
TERRIE Source: Blood/Venous
Specimen Description:
08/26/24 15:15
Lactic Acid Q4H
Comment: CANCEL 2nd LACTIC ACID IF 1st LACTIC ACID IS LESS THAN 2
08/26/24 16:18
0.9% Sodium Chloride 500 ml [Nss] 500 ml IV BOLUS
08/26/24 16:19
Piperacillin/Tazo 3.375 Gram [Zosyn] 3.375 gram in 50 ml IV NOW
08/26/24 16:57
Acetaminophen [Tylenol] 650 mg PO NOW STA
08/26/24 17:07
Carbidopa/Levodopa [Sinemet 25-100] 1 tablet PO NOW STA
08/26/24 17:26
0.9% Sodium Chloride 500 ml [Nss] 500 ml IV BOLUS
08/26/24 17:46
Basic Metabolic Panel Urgent
08/26/24 18:35
CT Abd/pelvis W Iv Cont Urgent
Comment:
Reason For Exam: abd pain, blood in stool, fever
Abnormal Lab Results
08/26/24 08/26/24
15:12 17:46
WBC 30.6 H 10^3/uL
(4.8-10.8)
RBC 4.01 L 10^6/uL
(4.70-6.10)
Hgb 12.0 L g/dL
(13.0-18.0)
Hct 36.1 L %
(39.0-52.0)
Plt Count 98 L 10^3/uL
(130-400)
MPV 12.1 H fL
(7.4-10.4)
Abs Immat Gran (auto) 0.5 H 10^3/uL
(0-0.05)
Absolute Neuts (auto) 26.9 H 10^3/uL
(1.4-6.5)
Absolute Lymphs (auto) 0.7 L 10^3/uL
(1.2-3.4)
Absolute Monos (auto) 2.4 H 10^3/uL
(0.1-0.6)
Immature Gran % 1.7 H %
(0-0.5)
Neutrophils % 88.0 H %
(42.2-75.2)
Lymphocytes % 2.3 L %
(20.5-51.1)
PT 16.6 H Sec
(11.4-14.6)
Chloride 111 H mmol/L
(98-107)
BUN 51 H mg/dl 50 H mg/dl
(9-20) (9-20)
Creatinine 1.9 H mg/dL 1.7 H mg/dL
(0.7-1.3) (0.7-1.3)
Glucose 130 H mg/dl 119 H mg/dl
(70-99) (70-99)
Lactic Acid 2.8 H mmol/L
(0.7-2.0)
Calcium 8.0 L mg/dl
(8.4-10.2)
08/26/24 15:12
08/26/24 17:46
Vital Signs
Initial and Last Documented VS:
Initial Vital Signs
Temp
101.4 F H
08/26/24 14:58
Last Documented Vital Signs
Temp Pulse Resp BP Pulse Ox
101.4 F H 64 18 107/67 85
08/26/24 14:58 08/26/24 18:40 08/26/24 18:40 08/26/24 18:40 08/26/24 18:40
<Patel Gates PA-C - Last Filed: 08/26/24 19:50>
MDM/Problems Addressed
Differential Diagnosis Includes:
Upper GI bleed versus lower GI bleed, symptomatic anemia, diverticular bleed, peptic ulcer disease, gastritis, less concern for any acute infectious etiology
MDM/Problems Addressed:
78-year-old male presented the ER for evaluation of reported generalized fatigue and weakness, self-reported diarrhea although based off of exam I am more suspicious that patient is experiencing an acute GI bleed. Stool is melanotic. Concern more
for an upper GI bleed. Labs including type and screen and coags ordered. 1 L normal saline ordered. Based off patient's medication list does not appear he is anticoagulated despite his history of atrial fibrillation. Will likely require admission
Chronic conditions affecting care: Arrhythmia and Neurological disorder (Parkinson's disease)
<Patel Gates PA-C - Last Filed: 08/26/24 19:50>
*Radiology
Radiology exam reviewed: radiology read reviewed
*Pulse Oximetry
Patient hypoxic: no
*EKG
Heart Rate: 68
Rate: normal
Rhythm: sinus
[place]: left axis deviation
Ischemia: no ischemia
*Real Estate Financial Analyst Interpretation
Rate: normal
Rhythm: sinus
*Critical Care Note
Total Time (30-74mins, 75-104mins- exclusive of procedures): 30
comment:
Critical care statement: A total of 30 minutes of critical care time was provided for this patient. This includes management of unstable vital signs, evaluation of the patient at bedside, reviewing the patient's pertinent medical records, discussion
with consultants, review of old EKGs and review of pertinent medical records. This time with separate from time utilized to perform the aforementioned documented procedures
Data Reviewed
Review of Other/Old Records Reveals: Labs and Records
<Patel Gates PA-C - Last Filed: 08/26/24 19:50>
Comment
Comment:
I had seen patient immediately on arrival prior to his temperature being checked, on triage vitals patient was found to have a temperature of 101.4. Blood culture and lactic acid ordered.
Patient Management
Discussion with other providers: Hospitalist
Escalation/DeEscalation of care consider admission/obs:
Following 2 L of fluids patient blood pressure remains improved. No further episodes of bleeding. Repeat BMP shows improved creatinine so we did obtain CT of the abdomen and pelvis with IV contrast which showed suspected colitis without any
abscess or bowel perforation noted. Patient given broad-spectrum Zosyn. Hospitalist team to admit. Patient will likely need GI team to see him in consult given the bleeding.
ED Attending Note
<Patel Gates PA-C - Last Filed: 08/26/24 19:50>
-
Portions of this chart may have been created with voice recognition software.� Occasional wrong word or��sound alike� substitutions may have occurred due to the inherent limitations of voice recognition software.
<Sachin Harding MD - Last Filed: 08/26/24 19:47>
ED Attending Note
Patient seen and examined by attending physician: Yes
ED Attending Note:
Patient presents to ED secondary to 2-day history of multiple episodes of loose bowel movement, associated with abdominal pain and decreased appetite, as well as depressed mental status noted by today. Upon arrival, patient is found to be
febrile, hypotensive, and somnolent, but easily arousable. Patient does complain of abdominal pain with distention. Denies vomiting. Denies trauma. Denies coughing. Denies headache. Denies dizziness. Denies recent change in medications or
diet. Denies recent travel. Denies previous history of similar symptoms. Denies sick contact.
Physical Exam
General: moderate distress, acutely ill. febrile. weak appearing. hypotensive
Head: nc/at. eomi
Neck: supple. no meningeal signs.
Heart: s1/s2 regular rate and rhythm
Lungs: no acute respiratory distress. clear bilaterally
Abdomen: normal bowel sounds. mild distention with diffuse tenderness to palpation
Neuro: somnolent but easily arousable. no focal neurological deficits
Skin: no rash
Psychiatric: well kept. interactive and cooperative
Extremities: no edema. no calf tenderness
Patient evaluated immediately upon arrival in ED, secondary to mental status change along with hypotension. Patient given Tylenol and started on aggressive IV fluid resuscitation, with improvement. Although patient remains somnolent, but easily
arousable and appropriate. Initial blood work reviewed, significant for leukocytosis, elevated lactate level, along with acute renal failure, changed from a year ago. Acute renal failure, likely prerenal from his current physiological state. As
patient would benefit from administration of IV contrast and obtaining CT scan, decision made to resuscitate patient with IV fluids and repeat blood work prior to ordering CT abdomen pelvis.
CT abdomen pelvis report reviewed and discussed with patient and spouse. Patient will be admitted for IV antibiotics and further evaluation. Recommendation for repeat CT scan with oral contrast, to be handled by admitting team.
Critical care statement: A total of 40 minutes of critical care time was provided for this patient. This includes management of unstable vital signs, evaluation of the patient at bedside, reviewing the patient's pertinent medical records, review of
old EKGs and review of pertinent medical records. This time with separate from time utilized to perform the aforementioned documented procedures
Discharge Plan
Departure
Patient Disposition: Admit
Date of Disposition: 08/26/24
Time of Disposition: 19:41
Presentation/result/management discussed w/ accepting MD/DO: Hospitalist
Discharge Problem:
Colitis, GI bleeding, MARY (acute kidney injury)
Prescriptions:
No Action
magnesium oxide 500 MG tablet
250 mg PO DAILY
ascorbic acid (vitamin C) [Vitamin C] 500 mg Tablet
500 mg PO DAILY
cyanocobalamin (vitamin B-12) [Vitamin B-12] 1,000 mcg Tablet
1,000 mcg PO DAILY
acetaminophen [Tylenol Extra Strength] 500 mg Tablet
1,000 mg PO TIDPRN PRN (Reason: mild pain)
fludrocortisone 0.1 mg tablet
0.1 mg PO BID
ropinirole 4 mg tablet
4 mg PO HS Qty: 30 0RF
Rx Instructions:
every other day
carbidopa-levodopa 25-250 mg Tablet
2 tab PO HS
midodrine 5 mg Tablet
15 mg PO DAILY
potassium chloride 20 mEq/15 mL Liquid
20 meq PO DAILY
calcium carbonate-vitamin D3 [Calcium 600 + D(3)] 600 mg-10 mcg (400 unit) Tablet
0.5 tab PO DAILY
amiodarone [Pacerone] 200 mg tablet
100 mg PO BID
sennosides-docusate sodium [Stool Softener-Stimulant Laxat] 8.6-50 mg tablet
1 tab PO QPM
midodrine 5 mg tablet
5 mg PO TID@1300,1800
carbidopa-levodopa 25-100 mg Tablet
1 tab PO TID@0800,1100,1700
Referrals:
Rashard Zhu MD [Family Provider, Family Practice]
Interventions
Interventions:
*Risk Screen - Suicide Last Done: 08/26/24 16:35
*General Assessment Last Done: 08/26/24 16:35
*Neglect/Abuse Screening Last Done: 08/26/24 16:35
*ED- Fall Risk Assessment Last Done: 08/26/24 16:35
*ED COVID-19 Vaccine History Last Done: 08/26/24 16:35
Discharge Date and Time
Print Language: CHADIAN
[2024-08-26] MEDS: NSS 1000 IV ×2 (15:19→23:23)
[2024-08-26 15:35] LABS: Hematocrit 36.1 % (39.0-52.0); Mean Corp Hgb Conc. 33.2 g/dL (33.0-37.0); Mean Corpuscular Hgb 29.9 pg (27.0-31.0); Red Blood Cell Count 4.01 10^6/uL (4.70-6.10); Red Cell Dist. Width 14.3 % (11.5-14.5); White Blood Cell Count 30.6 10^3/uL (4.8-10.8)
[2024-08-26 15:40] LABS: INR 1.29; Lactic Acid 2.8 mmol/L (0.7-2.0); PT 16.6 Sec (11.4-14.6)
[2024-08-26 15:41] LABS: APTT 34.6 Sec (23.4-35.0)
[2024-08-26 15:57] LABS: ALT (SGPT) 11 U/L (0-50); AST (SGOT) 32 U/L (17-59); Albumin 4.5 g/dl (3.5-5.0); Alkaline Phosphatase 91 U/L (38-126); Blood Urea Nitrogen 51 mg/dl (9-20); Calcium 9.3 mg/dl (8.4-10.2); Carbon Dioxide 25 mmol/L (22-30); Chloride 105 mmol/L (98-107); Glucose 130 mg/dl (70-99); Potassium 4.6 mmol/L (3.5-5.1); Sodium 140 mmol/L (135-145); Total Bilirubin 1.2 mg/dl (0.2-1.3); Total Protein 7.2 g/dl (6.3-8.2); eGFR 35.44
[2024-08-26 16:02] LABS: % Basophils 0.2 % (0-2); % Immature Granulocytes 1.7 % (0-0.5); % Lymphocytes 2.3 % (20.5-51.1); % Monocytes 7.8 % (1.7-9.3); Absolute Basophils 0.1 10^3/uL (0-0.2); Absolute Immature Granulocytes 0.5 10^3/uL (0-0.05); Absolute Lymphocytes 0.7 10^3/uL (1.2-3.4); Absolute Monocytes 2.4 10^3/uL (0.1-0.6); Absolute Neutrophils 26.9 10^3/uL (1.4-6.5); Mean Platelet Volume 12.1 fL (7.4-10.4); Nucleated Red Blood Cells % 0 % (-); Platelet Count 98 10^3/uL (130-400)
[2024-08-26] MEDS: NSS 500 IV ×2 (16:20→17:33)
[2024-08-26] MEDS: ZOSYN 50 IV (16:40)
[2024-08-26] MEDS: SINEMET 25-100 1 TABLET PO (17:33)
[2024-08-26] MEDS: TYLENOL 650 MG PO (17:33)
[2024-08-26 18:25] LABS: Blood Urea Nitrogen 50 mg/dl (9-20); Carbon Dioxide 22 mmol/L (22-30); Chloride 111 mmol/L (98-107); Glucose 119 mg/dl (70-99); Potassium 4.4 mmol/L (3.5-5.1); Sodium 139 mmol/L (135-145)
[2024-08-26 20:17] LABS: Lactic Acid 1.1 mmol/L (0.7-2.0)
--- NOTE | 2024-08-26 20:59 | HPS.HSE ---
Family Physician
-
Family Physician: Rashard Zhu
Chief Complaint
-
Diarrhea
History of Present Illness
Patient is a 78y M with PMH significant for Parkinson's disease and paroxysmal A-fib who presents to ED complaining of diarrhea x 2 days. Patient reports loose stools and fecal incontinence x 2 days. He denies any black or bloody stools. No
known sick contacts. No unusual food ingestions recently. Patient reports crampy abdominal pain that seemed somewhat improved after diarrhea. He denies any fevers / chills, N/V, etc. No recent medication changes or new meds.
Medical History
Past Medical History
Past Medical History: Reports Other
Additional Past Medical History:
Parkinson's Disease
Paroxysmal Atrial Fibrillation
Restless Leg Syndrome
Orthostatic Hypotension
Past Surgical History: Reports Other
Additional Past Surgical History:
Left TAO
T&A
Social History
Tobacco: Non-smoker
Alcohol: None
Drug: None
Family History
Family History: Not pertinent
Allergies / Home Medications
Allergies reflects when Allergies were last updated in [employer].
Home Medications with original date entered in [employer]
Allergy/Medication List:
Allergies
Allergy/AdvReac Type Severity Reaction Status Date / Time
Penicillins Allergy rash on Verified 07/14/23 09:21
chest
Home Medications
magnesium oxide 250 mg PO DAILY Electrolyte Repletion 07/23/18
ascorbic acid (vitamin C) 500 mg tablet (Vitamin C) 500 mg PO DAILY Supplement 12/11/21
cyanocobalamin (vitamin B-12) 1,000 mcg tablet (Vitamin B-12) 1,000 mcg PO DAILY supplement 05/17/22
acetaminophen 500 mg tablet (Tylenol Extra Strength) 1,000 mg PO TIDPRN PRN mild pain 07/14/23
fludrocortisone 0.1 mg tablet 0.1 mg PO BID Hormonal Agent 07/14/23
ropinirole 4 mg tablet 4 mg PO HS #30 tabs 07/19/23
amiodarone 200 mg tablet (Pacerone) 100 mg PO BID 08/26/24
calcium 600 mg (as carbonate)-vitamin D3 10 mcg (400 unit) tablet (Calcium 600 + D(3)) 0.5 tab PO DAILY 08/26/24
carbidopa 25 mg-levodopa 100 mg tablet 1 tab PO TID@0800,1100,1700 08/26/24
carbidopa 25 mg-levodopa 250 mg tablet 2 tab PO HS 08/26/24
midodrine 5 mg tablet 5 mg PO TID@1300,1800 08/26/24
midodrine 5 mg tablet 15 mg PO DAILY 08/26/24
potassium chloride 20 mEq/15 mL oral liquid 20 meq PO DAILY 08/26/24
sennosides 8.6 mg-docusate sodium 50 mg tablet (Stool Softener-Stimulant Laxative) 1 tab PO QPM 08/26/24
Review of Systems
-
History Source: Patient
A 12 point ROS was completed and negative except as noted: Yes
Constitutional: Reports Fatigue; Denies Fever or Chills
EENT: Denies Sore Throat
Respiratory: Denies Cough or Trouble Breathing
Cardiac: Denies Chest Pain or Palpitations
Abdomen/GI: Reports Abdominal Pain and Diarrhea; Denies Nausea, Vomiting, Bloody Stools or Black Stools
: Denies Dysuria or Frequency
Musculoskeletal: Denies Joint Pain or Edema
Neurological: Denies Dizzy or Headache
Physical Exam
Vital Signs
Vital Signs
Temp Pulse Resp BP Pulse Ox
101.4 F H 62 16 103/50 95
08/26/24 14:58 08/26/24 19:35 08/26/24 19:35 08/26/24 19:35 08/26/24 19:35
Physical Exam
General: Other (78y M with marked thoracic kyphosis. In no acute distress.)
HEENT: Other (Dry MM. Neck supple.)
Respiratory: Other (Decreased at bases. Otherwise clear.)
Cardiac: S1/S2 and Regular Rhythm; No Murmur
GI: Other (Mild LLQ abdominal tenderness without rebound / guarding. Pos BS.)
Musculoskeletal: No Clubbing, No Cyanosis and No Edema
Neuro: AO x 3
Laboratory Results
-
08/26/24 15:12
08/26/24 17:46
Laboratory Results
PT 16.6 Sec (11.4-14.6) H 08/26/24 15:12
INR 1.29 08/26/24 15:12
APTT 34.6 Sec (23.4-35.0) 08/26/24 15:12
Lactic Acid 1.1 mmol/L (0.7-2.0) 08/26/24 19:42
Total Bilirubin 1.2 mg/dl (0.2-1.3) 08/26/24 15:12
AST 32 U/L (17-59) 08/26/24 15:12
ALT 11 U/L (0-50) 08/26/24 15:12
Alkaline Phosphatase 91 U/L (38-126) 08/26/24 15:12
Impression/Plan
-
A/P: Patient is a 78y M with PMH significant for Parkinson's disease and PA-Fib who presents to ED complaining of diarrhea x 2 days.
Colitis
Sepsis secondary to the above
- Admit for further evaluation and treatment.
- Patient presents with fever, leukocytosis and diarrhea with CT scan showing colitis - mostly L sided.
- No recent abx use or known sick contacts.
- Continue abx for presumed infectious colitis for now.
- Follow-up stool cultures.
- Follow serial lactate as well - possibility of ischemic colitis - especially given issues with chronic hypotension.
- GI evaluation for additional recommendations.
- Follow for clinical improvement.
Parkinson's Disease
Orthostatic Hypotension
RLS
- Stable. BP low in the ED initially - now somewhat elevated.
- Has known orthostatic hypotension on chronic midodrine and fludrocortisone.
- Continue usual Sinemet dosing without changes.
- Continue usual midodrine / Florinef.
- IVF support as needed. Avoid hypotension / hypoperfusion.
- Continue ropinirole.
Paroxysmal Atrial Fibrillation
- Stable. Maintaining sinus rhythm.
- Continue amiodarone.
- Patient is not on chronic OAC.
Hypoxemia
- No complaints of cough, dyspnea, etc.
- Noted to have periods of hypoxemia in the ED.
- ? related to kyphosis / etc.
- Check CXR.
DVT Prophylaxis: SCDs
Code Status: Full
[2024-08-26] MEDS: ROCEPHIN 1000 MG IV (23:23)
[2024-08-26] MEDS: STERILE WATER FOR INJECTION 10 ML IV (23:23)
[2024-08-26] MEDS: SINEMET 25-250 2 TABLET PO (23:23)
[2024-08-26] MEDS: FLAGYL 500 MG 100 IV (23:23)
[2024-08-27] VITALS (8 sets, daily range): BP systolic 86–169; BP diastolic 50–105; PULSE 75; O2SAT 89–90; BMI 18.0
[2024-08-27] MEDS: REQUIP 4 MG PO ×2 (00:19→22:31)
[2024-08-27] MEDS: PACERONE 100 MG PO ×3 (00:19→21:52)
[2024-08-27] MEDS: FLAGYL 500 MG 100 IV ×3 (06:13→21:52)
[2024-08-27 07:49] LABS: Hematocrit 29.7 % (39.0-52.0); Hemoglobin 9.8 g/dL (13.0-18.0); Mean Corpuscular Volume 90.8 fL (80.0-94.0); Mean Platelet Volume 12.1 fL (7.4-10.4); Platelet Count 77 10^3/uL (130-400); Red Blood Cell Count 3.27 10^6/uL (4.70-6.10); Red Cell Dist. Width 14.5 % (11.5-14.5); White Blood Cell Count 19.6 10^3/uL (4.8-10.8)
[2024-08-27] MEDS: ProAmatine 15 MG PO (08:19)
[2024-08-27] MEDS: FLORINEF 0.1 MG PO ×2 (08:20→21:52)
[2024-08-27] MEDS: KCL ELIXIR 20 MEQ PO (08:21)
[2024-08-27] MEDS: SINEMET 25-100 1 TABLET PO ×3 (08:26→18:37)
[2024-08-27 08:33] LABS: ALT (SGPT) < 10 U/L (0-50); AST (SGOT) 28 U/L (17-59); Albumin 3.2 g/dl (3.5-5.0); Alkaline Phosphatase 93 U/L (38-126); Blood Urea Nitrogen 47 mg/dl (9-20); Calcium 8.3 mg/dl (8.4-10.2); Carbon Dioxide 22 mmol/L (22-30); Chloride 110 mmol/L (98-107); Direct Bilirubin 0.3 mg/dl (0.0-0.4); Estimated Creatinine Clearance 24 ml/min; Glucose 78 mg/dl (70-99); Potassium 3.3 mmol/L (3.5-5.1); Sodium 139 mmol/L (135-145); Total Bilirubin 0.7 mg/dl (0.2-1.3); Total Protein 5.4 g/dl (6.3-8.2); eGFR 37.82
[2024-08-27 08:45] LABS: TSH Reflex To Free T4 1.28 uIU/ml (0.47-4.68)
[2024-08-27] MEDS: KCL 270 MEQ IV (10:29)
--- NOTE | 2024-08-27 12:02 | CON.GI ---
Addendum entered and electronically signed by Maria Ines Finney MD 08/27/24 17:18:
I saw and examined the patient.
The THREADING MACHINE SETTER's note was reviewed and I agree with the note.
Comment: This is a 78-year-old male with past medical history as listed below presented to the emergency room with symptoms of diarrhea for 2 days prior to admission. On CT was noted to have left-sided colitis and also significant leukocytosis of
30,000 was started on antibiotics and WBC count has been trending down he also had a fever with a Tmax of 101 on admission. Since admission his diarrhea has been improving no rectal bleeding. He also denies any abdominal pain currently no nausea
or vomiting he apparently was constipated prior to the onset of the diarrhea with hard stools and straining. He does takes laxatives as needed. His last colonoscopy was in [address] Bah was poor prep he did have diverticulosis,
hemorrhoids and colon polyp- TA did not follow-up for repeat colonoscopy. he does have chronic pancytopenia and apparently had evaluation with also a bone marrow biopsy and heme eval in 2021.
Assessment and plan diarrhea with fever and leukocytosis and CT consistent with colitis may be infectious versus ischemic colitis since he has history of hypotension cannot rule out possible stercoral colitis since he does have chronic constipation
and also has history of Parkinson's or diverticular associated segmental colitis. Stool is negative for C. difficile and cultures are pending also negative for crypto and Giardia. Continue ceftriaxone and Flagyl for now, symptoms are already
improving. can advance to low residue diet. Will need a colonoscopy in 6 to 8 weeks if patient able to tolerate or could do a virtual CT given his multiple comorbidities. Overall symptoms are much improved will sign off and will be available as
needed
Original Note:
Consultation
-
Date/Time Consultation Requested: 08/26/24 2300
Date/Time Consultation Performed: 08/27/24 1200
Requesting Provider: Vlad Og DO
Performing Provider: CHANO Retana, Maria Ines Finney MD
Reason for Consultation: colitis
Medical History
Chief Complaint / HPI
Chief Complaint: diarrhea
History of Present Illness:
Pt is a 78yo presents with hx PAF not on anticoagulation, pancytopenia with prior bone marrow biopsy, diverticulosis, parkinson's, BPH, colon polyps, hernia repair restless leg syndrome, orthostatic hypotension with onset of diarrhea for 2 days. On
admission noted with WBC 30,600 with fever up to 101.4 on admission, hbg 12 with drop to 9.8, platelet 98,000 with drop after admission, K 3.3, creat 1.9, BUN 51 glucose [address] a/p with concern for colitis particularly
left-sided colitis. No intestinal obstruction or free air. Probable small inguinal hernias. CXR with possible PNA.
In review with patient he states recent constipation with difficulty passing stools recently. He will take laxatives as needed. He will have daily stools and sometime weekly stools. He now in noted with onset of loose stools for 2 days
with inability to control diarrhea. Last colonoscopy 2012 with poor prep, adenomatous polyps, diverticulosis, non bleeding hemorrhoids. He denies odynophagia, dysphagia,nausea, vomiting, abdominal pain, blood or black in stools. No recent travel,
abx or change in medications.
Past Medical History
Past Medical History: Arrhythmias, GERD and Other (parkinson's disease, restless leg syndrome, orthostatic hypotension, pancytopenia, BPH, colon polyps, diverticulosis)
Past Surgical History: Tonsilectomy and Other (hernia repair, detached retina, prior bone marrow biopsy )
Social History
Tobacco: Non-Smoker
Alcohol: None
Drug: None
Personal:
Living: With Family
Employment: Retired
Family History
Family History: Other (brother with stomach CA)
Allergies / Home Medications
Allergy/AdvReac Type Severity Reaction Status Date / Time
Penicillins Allergy rash on Verified 07/14/23 09:21
chest
�Medication �Instructions �Recorded
magnesium oxide 250 mg PO DAILY Electrolyte 07/23/18
Repletion
ascorbic acid (vitamin C) 500 mg 500 mg PO DAILY Supplement 12/11/21
tablet (Vitamin C)
cyanocobalamin (vitamin B-12) 1,000 mcg PO DAILY supplement 05/17/22
1,000 mcg tablet (Vitamin B-12)
acetaminophen 500 mg tablet 1,000 mg PO TIDPRN PRN mild pain 07/14/23
(Tylenol Extra Strength)
fludrocortisone 0.1 mg tablet 0.1 mg PO BID Hormonal Agent 07/14/23
ropinirole 4 mg tablet 4 mg PO HS #30 tabs 07/19/23
amiodarone 200 mg tablet (Pacerone) 100 mg PO BID Arrhythmia 08/26/24
calcium 600 mg (as 0.5 tab PO DAILY 08/26/24
carbonate)-vitamin D3 10 mcg (400
unit) tablet (Calcium 600 + D(3))
carbidopa 25 mg-levodopa 100 mg 1 tab PO TID@0800,1100,1700 08/26/24
tablet
carbidopa 25 mg-levodopa 250 mg 2 tab PO HS PARKINSON 08/26/24
tablet
midodrine 5 mg tablet 5 mg PO TID@1300,1800 08/26/24
midodrine 5 mg tablet 15 mg PO DAILY 08/26/24
potassium chloride 20 mEq/15 mL 20 meq PO DAILY 08/26/24
oral liquid
sennosides 8.6 mg-docusate sodium 1 tab PO QPM 08/26/24
50 mg tablet (Stool
Softener-Stimulant Laxative)
Review of Systems
-
History Source: Patient
Constitutional: Reports No Symptoms
EENT: Reports No Symptoms
Respiratory: Reports No Symptoms
Cardiac: Reports No Symptoms
Abdomen/GI: Reports Diarrhea and Constipated
: Reports No Symptoms
Skin: Reports No Symptoms
Neurological: Reports Other (weakness with parkinson's)
Endocrine: Reports No Symptoms
Hematologic/Lymphatic: Reports No Symptoms
Vital Signs
Temp Pulse Resp BP Pulse Ox
98.2 F 69 20 137/67 92
08/27/24 11:38 08/27/24 11:38 08/27/24 11:38 08/27/24 11:38 08/27/24 11:38
Physical Exam
Exam
General: Well Developed, Well Nourished and No Apparent Distress
HEENT: Normocephalic and Anicteric
Respiratory: Clear
Cardiac: Regular Rhythm
GI: Soft, Non Tender and Non Distended
Rectal: Hem Positive (dark brown no impaction)
Musculoskeletal: No Clubbing and No Cyanosis
Skin: Warm and Dry
Neuro: Awake, Alert and AO x 3
Psych: Calm
Results
WBC 19.6 10^3/uL (4.8-10.8) H 08/27/24 07:05
Hgb 9.8 g/dL (13.0-18.0) L 08/27/24 07:05
Hct 29.7 % (39.0-52.0) L 08/27/24 07:05
MCV 90.8 fL (80.0-94.0) 08/27/24 07:05
Plt Count 77 10^3/uL (130-400) L D 08/27/24 07:05
Absolute Neuts (auto) 26.9 10^3/uL (1.4-6.5) H 08/26/24 15:12
PT 16.6 Sec (11.4-14.6) H 08/26/24 15:12
INR 1.29 08/26/24 15:12
APTT 34.6 Sec (23.4-35.0) 08/26/24 15:12
Sodium 139 mmol/L (135-145) 08/27/24 07:05
Potassium 3.3 mmol/L (3.5-5.1) L 08/27/24 07:05
Chloride 110 mmol/L (98-107) H 08/27/24 07:05
Carbon Dioxide 22 mmol/L (22-30) 08/27/24 07:05
BUN 47 mg/dl (9-20) H 08/27/24 07:05
Creatinine 1.8 mg/dL (0.7-1.3) H 08/27/24 07:05
Calcium 8.3 mg/dl (8.4-10.2) L 08/27/24 07:05
Total Bilirubin 0.7 mg/dl (0.2-1.3) 08/27/24 07:05
AST 28 U/L (17-59) 08/27/24 07:05
ALT < 10 U/L (0-50) 08/27/24 07:05
Alkaline Phosphatase 93 U/L (38-126) 08/27/24 07:05
Diagnostic Image Results:
08/26/24 CT Abd/pelvis W Iv Cont
Markedly limited evaluation as a result of numerous factors, as detailed above with findings highly suspicious for COLITIS, particularly left-sided colitis. No intestinal obstruction or free air. Evaluation for abnormal focal fluid collection
markedly limited. Recommend follow-up CT with oral contrast and delayed imaging. Findings discussed by telephone with Dr. Harding in the emergency department at 1930 hours on August 26, 2024.
Probable small inguinal hernias, would be better appreciated following oral contrast administration..
08/26 CR Chest - 2 Views
Cannot exclude small patchy medial right basilar opacification such as pneumonia.
Likely mild cardiomegaly and slightly increased pulmonary vascularity.
Prior GI Procedures:
EGD: none
Colonoscopy: 2013 minissale -
- Preparation of the colon was poor.
- The examined portion of the ileum was normal.
- One 5 mm polyp in the mid ascending colon. Resected
and retrieved.
- Diverticulosis in the sigmoid colon.
- Non-bleeding external hemorrhoids.
- Stool in the descending colon, in the transverse
colon, in the ascending colon and in the cecum.
bx adenomatous polyps-- repeat 3 years
Assessment / Plan
-
Pt is a 78yo presents with hx PAF not on anticoagulation, pancytopenia with prior bone marrow biopsy, diverticulosis, parkinson's, BPH, colon polyps, hernia repair, restless leg syndrome, orthostatic hypotension with onset of diarrhea for 2 days.
On admission noted with WBC 30,600 with fever up to 101.4 , hbg 12 with drop to 9.8, platelet 98,000 with drop after admission, K 3.3, creat 1.9, BUN 51 glucose [address] a/p with concern for colitis particularly left-sided
colitis. No intestinal obstruction or free air. Probable small inguinal hernias. CXR with possible PNA. In review with patient he states recent constipation with difficulty passing stools recently. He will take laxatives as needed. He will have
daily stools and sometime weekly stools. He now in noted with onset of loose stools for 2 days with inability to control diarrhea. Last colonoscopy 2012 with poor prep, adenomatous polyps, diverticulosis, non bleeding hemorrhoids. No recent
travel, abx or change in medications.
-diarrhea
-CT with possible colitis
-recent constipation
-leukocytosis/fever on admission
-thrombocytopenia/anemia hx pancytopenia and prior bone marrow bx and heme eval in 2021
-hypokalemia
other med problems:
-PAF not on anticoagulation
-pancytopenia with prior bone marrow biopsy
-diverticulosis
-parkinson's
-BPH
-colon polyps
- hernia repair
-restless leg syndrome
-orthostatic hypotension
PLAN:
etiology of diarrhea/possible colitis related to infectious etiology with marked leukocytosis, stercoral colitis with recent constipation, ischemic colitis with noted hx orthostasis on chronic midodrine and fludrocortisone vs other
agree with stool studies
follow stool pattern current stool loose no impaction on exam
trend CBC
cont abx
keep electrolyte corrected
currently no abdominal pain on clear diet will allow low residue dinner
OP follow up to review for repeat colonoscopy as was to return in 2016-- pt unsure if could tolerate prep with parkinson's
-
-
Thank you for consultation and allowing me to participate in the patient's care. Please call the donation worker GI physician during the after hours with any questions or concerns.
[2024-08-27] MEDS: ProAmatine 5 MG PO ×2 (12:36→18:37)
[2024-08-27] MEDS: NSS 1000 IV ×2 (12:41→22:32)
--- NOTE | 2024-08-27 12:53 | W.PN.HOSP.TC ---
Today's Communication/Plan
-
Monitor vital signs and see plan
Continue with antibiotics
Follow cultures
Follow fever curve
Monitor leukocytosis
Replete potassium
Monitor renal function
Discussed with spouse
Assessment / Plan
Assessment / Plan
General: Other (78y M with marked thoracic kyphosis. In no acute distress.)
HEENT: Other (Dry MM. Neck supple.)
Respiratory: Other (Decreased at bases. Otherwise clear.)
Cardiac: S1/S2 and Regular Rhythm; No Murmur
GI: Other (Mild LLQ abdominal tenderness without rebound / guarding. Pos BS.)
Musculoskeletal: No Clubbing, No Cyanosis and No Edema
Neuro: AO x 3
Colitis
Sepsis secondary to the above
- Patient presents with fever, leukocytosis and diarrhea with CT scan showing colitis - mostly L sided.
- No recent abx use or known sick contacts.
- Continue abx for presumed infectious colitis for now.
- Follow-up stool cultures
- possibility of ischemic colitis - especially given issues with chronic hypotension.
- GI evaluation for additional recommendations.
- Follow for clinical improvement
clears for now
Renal insufficiency, MARY or MARY on CKD
Suspected some dehydration
Continue to monitor creatinine
unknown baseline
Parkinson's Disease
Orthostatic Hypotension
RLS
- Has known orthostatic hypotension on chronic midodrine and fludrocortisone.
- Continue usual Sinemet dosing without changes.
- Continue usual midodrine / Florinef.
- IVF support as needed. Avoid hypotension / hypoperfusion.
- Continue ropinirole.
Paroxysmal Atrial Fibrillation
- Stable. Maintaining sinus rhythm.
- Continue amiodarone.
- Patient is not on chronic OAC.
Hypoxemia
- No complaints of cough, dyspnea, etc.
-on room air
- ? related to kyphosis / etc.
- It is chest x-ray, cannot rule out basilar opacity. Does not appear to have any signs of pneumonia at this time
DVT Prophylaxis: SCDs
Code Status: Full
I spent a total of 52 minutes with the patient or on the floor. More than 50% of this time involved counseling and coordination of care.
Anticipated Discharge: > 48 hours
Subjective/Interval History
-
Date of Service: August 27, 2024
denies nausea
Objective Data
-
Labs:
Laboratory Results
08/27/24
07:05
WBC 19.6 H
Hgb 9.8 L
Hct 29.7 L
Plt Count 77 L D
Sodium 139
Potassium 3.3 L
Chloride 110 H
Carbon Dioxide 22
BUN 47 H
Creatinine 1.8 H
Glucose 78
Calcium 8.3 L
Total Bilirubin 0.7
AST 28
ALT < 10
Alkaline Phosphatase 93
Vital Signs:
Vital Signs
Temp Pulse Resp BP Pulse Ox
98.2 F 69 20 137/67 92
08/27/24 11:38 08/27/24 11:38 08/27/24 11:38 08/27/24 11:38 08/27/24 11:38
I&O
08/26/24 08/27/24 08/28/24
06:59 06:59 06:59
Intake Total 1000 / 1000 270 / 270
Output Total 300 / 300
Balance 700 / 700 270 / 270
--- NOTE | 2024-08-27 15:15 | CM ---
estimator project manager reviewed patient's chart and met with patient and patient lives with his spouse in a 2 story home, with 2 steps to enter, and 13 steps to 2nd floor, patient is independent with adl's and uses a walker with ambulation, stair glide to 2nd
floor.
PCP: Dr. Zhu
Pharmacy: [facility].
Plan; Home with spouse when stable.
[2024-08-27 19:53] LABS: Hepatitis C Antibody Negative (Negative)
[2024-08-27] MEDS: ROCEPHIN 1000 MG IV (21:51)
[2024-08-27] MEDS: STERILE WATER FOR INJECTION 10 ML IV (21:51)
[2024-08-27] MEDS: SINEMET 25-250 2 TABLET PO (21:51)
[2024-08-28] VITALS (11 sets, daily range): BP systolic 108–194; BP diastolic 59–114; O2SAT 90–91; BMI 18.6
[2024-08-28] MEDS: FLAGYL 500 MG 100 IV ×3 (05:36→21:45)
[2024-08-28] MEDS: NSS 1000 IV (05:37)
[2024-08-28] MEDS: PACERONE 100 MG PO ×2 (08:11→21:18)
[2024-08-28] MEDS: FLORINEF 0.1 MG PO ×2 (08:11→21:23)
[2024-08-28] MEDS: ProAmatine 15 MG PO (08:13)
[2024-08-28] MEDS: KCL ELIXIR 20 MEQ PO (08:14)
[2024-08-28] MEDS: SINEMET 25-100 1 TABLET PO ×3 (08:16→16:53)
[2024-08-28 08:18] LABS: % Basophils 0.3 % (0-2); % Eosinophils 0.8 % (0-6); % Immature Granulocytes 0.9 % (0-0.5); % Lymphocytes 7.3 % (20.5-51.1); % Monocytes 7.6 % (1.7-9.3); % Neutrophils 83.1 % (42.2-75.2); Absolute Eosinophils 0.1 10^3/uL (0-0.7); Absolute Immature Granulocytes 0.1 10^3/uL (0-0.05); Absolute Lymphocytes 0.8 10^3/uL (1.2-3.4); Absolute Monocytes 0.9 10^3/uL (0.1-0.6); Absolute Neutrophils 9.6 10^3/uL (1.4-6.5); Hematocrit 30.5 % (39.0-52.0); Hemoglobin 9.9 g/dL (13.0-18.0); Mean Corp Hgb Conc. 32.5 g/dL (33.0-37.0); Mean Corpuscular Hgb 29.6 pg (27.0-31.0); Mean Platelet Volume 11.5 fL (7.4-10.4); Nucleated Red Blood Cells % 0 % (-); Platelet Count 76 10^3/uL (130-400); Red Blood Cell Count 3.35 10^6/uL (4.70-6.10); Red Cell Dist. Width 14.5 % (11.5-14.5); White Blood Cell Count 11.6 10^3/uL (4.8-10.8)
[2024-08-28 09:16] LABS: Blood Urea Nitrogen 35 mg/dl (9-20); Calcium 8.8 mg/dl (8.4-10.2); Carbon Dioxide 19 mmol/L (22-30); Chloride 117 mmol/L (98-107); Estimated Creatinine Clearance 32 ml/min; Glucose 80 mg/dl (70-99); Potassium 3.7 mmol/L (3.5-5.1); Sodium 143 mmol/L (135-145); eGFR 51.13
--- NOTE | 2024-08-28 11:21 | PTCARENOTE ---
Patient resting in chair, states does not feel good. Bp elevated 194/106. patient denies any pain. patient c/o SOB with 2L NC in use. MD Gupta notified of change.will continue to monitor.
--- NOTE | 2024-08-28 11:38 | PTCARENOTE ---
Patient moved back to bed. patient increased to 3L NC O2 sat 93%. Patient wheezing more than this morning. notified. Per MD Gupta order, manual BP taken on both arms. Bp remains elevated. new orders for lasix and nebs at this time. will continue
to monitor.
[2024-08-28] MEDS: ProAmatine PO ×2 (11:49→16:53)
[2024-08-28] MEDS: LASIX 20 MG IV (12:01)
[2024-08-28] MEDS: DUONEB 3 ML INH ×2 (12:19→15:55)
--- NOTE | 2024-08-28 12:28 | W.PN.HOSP.TC ---
Today's Communication/Plan
-
Monitor vital signs and see plan
Trial of Lasix
Hydralazine
Wean oxygen as tolerated
Discussed with spouse
Continue antibiotics
Assessment / Plan
Assessment / Plan
General: Other (78y M with marked thoracic kyphosis. In no acute distress.)
HEENT: Anicteric, pink conjunctiva
Respiratory: Decreased at bases, mild Rales
Cardiac: S1/S2 and Regular Rhythm
GI: Other (Mild LLQ abdominal tenderness without rebound / guarding. Pos BS.)
Musculoskeletal: No Clubbing, No Cyanosis and No Edema
Neuro: AO x 3
Colitis
Sepsis secondary to the above
- Patient presents with fever, leukocytosis and diarrhea with CT scan showing colitis - mostly L sided.
- No recent abx use or known sick contacts.
- Continue abx for presumed infectious colitis for now.
- stool studies so far not significant
- possibility of ischemic colitis - especially given issues with chronic hypotension.
- GI evaluation for additional recommendations.
- Follow for clinical improvement
now improving and on LRD
Renal insufficiency, MARY or MARY on CKD
Continue to monitor creatinine
unknown baseline
Acute hypoxic respiratory sufficiency suspect 2/2 interstitial edema
Hypertensive emergency; dose of IV hydralazine
check bnp
check echo
trial of lasix
-on room air
- ? related to kyphosis / etc.
Parkinson's Disease
Orthostatic Hypotension
RLS
- Has known orthostatic hypotension on chronic midodrine and fludrocortisone.
- Continue usual Sinemet dosing without changes.
- Continue usual midodrine / Florinef.
- IVF support as needed. Avoid hypotension / hypoperfusion.
- Continue ropinirole.
Paroxysmal Atrial Fibrillation
- Stable. Maintaining sinus rhythm.
- Continue amiodarone.
- Patient is not on chronic OAC.
DVT Prophylaxis: SCDs
Code Status: Full
I spent a total of 52 minutes with the patient or on the floor. More than 50% of this time involved counseling and coordination of care.
Anticipated Discharge: > 48 hours
Subjective/Interval History
-
Date of Service: August 28, 2024
sob this morning
Objective Data
-
Labs:
Laboratory Results
08/28/24
07:40
WBC 11.6 H
Hgb 9.9 L
Hct 30.5 L
Plt Count 76 L
Sodium 143
Potassium 3.7
Chloride 117 H
Carbon Dioxide 19 L
BUN 35 H
Creatinine 1.4 H
Glucose 80
Calcium 8.8
Vital Signs:
Vital Signs
Temp Pulse Resp BP Pulse Ox
97.7 F 68 18 194/106 95
08/28/24 11:00 08/28/24 12:23 08/28/24 12:23 08/28/24 11:00 08/28/24 12:23
I&O
08/27/24 08/28/24 08/29/24
06:59 06:59 06:59
Intake Total 1000 / 1000 1790 / 1790
Output Total 300 / 300 400 / 400 175 / 175
Balance 700 / 700 1390 / 1390 -175 / -175
--- NOTE | 2024-08-28 12:39 | RESPNOTE ---
patient assessed for neb treatment due to SOB/wheezing. upon introduction, patient stated he did not ' need ' the nebulizer treatment. discussed indication and benefit for neb tx, patient stated ' ill be by the end of the month, it wont
matter.' upon further discussion, pt stated 'everything hurts and we all at some point,' pt redirected and encouraged to try nebulizer before he decided it wouldn't work. pt agreeable at this point and neb tx started. this therapist stepped out
of room to obtain equipment labels and to save work on computer and upon re-entry to room within 3 min, neb mouthpiece was on patient's bed. asked patient why he stopped breathing in the neb tx. pt stated ' nothing is working, ill probably be
by the end of the month.' remainder of neb tx dumped ~about half. emotional support provided. BS were decreased/ no wheezing at time of auscultation. SpO2 96% on 3L, O2 weaned to 2L. update provided to ITA Mcclelland and Dr. Gupta via TT.
[2024-08-28] MEDS: APRESOLINE 5 MG IV ×2 (12:55→13:50)
[2024-08-28 16:03] LABS: NT-proBNP 10900 pg/ml
--- NOTE | 2024-08-28 16:03 | CM ---
product engineering manager reviewed patient's chart and spoke with patient and spouse and physical therapy are recommending skilled, patient made it clear that he wanted to return to home however, is agreeable to skilled at [facility] as a back up plan, referral
sent to [facility].
Plan; Home if possible skilled placement at [facility] as back up plan.
[2024-08-28] MEDS: REQUIP 4 MG PO (21:18)
[2024-08-28] MEDS: SINEMET 25-250 2 TABLET PO (21:19)
[2024-08-28] MEDS: ROCEPHIN 1000 MG IV (22:05)
[2024-08-28] MEDS: STERILE WATER FOR INJECTION 10 ML IV (22:05)
[2024-08-29 03:16] VITALS: BP 100/54
[2024-08-29] MEDS: FLAGYL 500 MG 100 IV ×3 (05:35→22:05)
[2024-08-29 06:00] VITALS: BMI 18.0
[2024-08-29 07:00] VITALS: BP 179/101
[2024-08-29] MEDS: ProAmatine PO ×3 (07:18→16:28)
[2024-08-29] MEDS: FLORINEF 0.1 MG PO ×2 (07:28→19:57)
[2024-08-29] MEDS: KCL ELIXIR 20 MEQ PO (07:28)
[2024-08-29] MEDS: PACERONE 100 MG PO ×2 (07:28→19:56)
[2024-08-29] MEDS: SINEMET 25-100 1 TABLET PO ×3 (07:37→16:31)
[2024-08-29 08:29] LABS: % Basophils 0.3 % (0-2); % Eosinophils 0.1 % (0-6); % Immature Granulocytes 0.9 % (0-0.5); % Monocytes 8.9 % (1.7-9.3); % Neutrophils 81.8 % (42.2-75.2); Absolute Immature Granulocytes 0.1 10^3/uL (0-0.05); Absolute Lymphocytes 0.6 10^3/uL (1.2-3.4); Absolute Monocytes 0.7 10^3/uL (0.1-0.6); Absolute Neutrophils 6.4 10^3/uL (1.4-6.5); Hematocrit 31.8 % (39.0-52.0); Hemoglobin 10.7 g/dL (13.0-18.0); Mean Corp Hgb Conc. 33.6 g/dL (33.0-37.0); Mean Corpuscular Hgb 29.8 pg (27.0-31.0); Mean Corpuscular Volume 88.6 fL (80.0-94.0); Mean Platelet Volume 11.2 fL (7.4-10.4); Nucleated Red Blood Cells % 0 % (-); Platelet Count 98 10^3/uL (130-400); Red Blood Cell Count 3.59 10^6/uL (4.70-6.10); Red Cell Dist. Width 14.3 % (11.5-14.5); White Blood Cell Count 7.9 10^3/uL (4.8-10.8)
[2024-08-29] MEDS: APRESOLINE 5 MG IV (08:35)
[2024-08-29 08:48] LABS: Blood Urea Nitrogen 24 mg/dl (9-20); Calcium 8.5 mg/dl (8.4-10.2); Carbon Dioxide 21 mmol/L (22-30); Chloride 113 mmol/L (98-107); Estimated Creatinine Clearance 31 ml/min; Glucose 95 mg/dl (70-99); Potassium 2.9 mmol/L (3.5-5.1); Sodium 145 mmol/L (135-145); eGFR 51.13
[2024-08-29] MEDS: KCL ELIXIR 40 MEQ PO ×2 (09:35→14:07)
[2024-08-29 11:00] VITALS: BP 133/76
--- NOTE | 2024-08-29 11:37 | W.PN.HOSP.TC ---
Today's Communication/Plan
-
Monitor vital signs see plan
IV Lasix again today
Replete potassium aggressively
cw abx
Discussed with spouse
Assessment / Plan
Assessment / Plan
General: Other (78y M with marked thoracic kyphosis. In no acute distress.)
HEENT: Anicteric, pink conjunctiva
Respiratory: Decreased at bases, mild Rales
Cardiac: S1/S2 and Regular Rhythm
GI: non tender,non distended
Musculoskeletal: No Clubbing, No Cyanosis and No Edema
Neuro: AO x 3
Colitis
Sepsis secondary to the above
- Patient presents with fever, leukocytosis and diarrhea with CT scan showing colitis - mostly L sided.
- No recent abx use or known sick contacts.
- Continue abx for presumed infectious colitis for now.
- stool studies so far not significant
- possibility of ischemic colitis - especially given issues with chronic hypotension.
- GI evaluation for additional recommendations.
- Follow for clinical improvement
now improving and on LRD
Renal insufficiency, MARY or MARY on CKD
Continue to monitor creatinine
unknown baseline
Hypokalemia
Replete
Acute hypoxic respiratory sufficiency suspect 2/2 interstitial edema
Hypertensive emergency; dose of IV hydralazine
check bnp >[id number]
check echo with preserved EF; pulonary HTN
trial of lasix
on 2-3L; wean o2 as tolerated
- ? related to kyphosis / etc.
Parkinson's Disease
Orthostatic Hypotension
RLS
- Has known orthostatic hypotension on chronic midodrine and fludrocortisone.
- Continue usual Sinemet dosing without changes.
- Continue usual midodrine / Florinef with holding parameter
- IVF support as needed. Avoid hypotension / hypoperfusion.
- Continue ropinirole.
Intermittent urinary retention
With high postvoid residual, suspect possibly has neurogenic bladder
bladder scan prn
Paroxysmal Atrial Fibrillation
- Stable. Maintaining sinus rhythm.
- Continue amiodarone.
- Patient is not on chronic OAC.
DVT Prophylaxis: SCDs,heparin
Code Status: Full
I spent a total of 53 minutes with the patient or on the floor. More than 50% of this time involved counseling and coordination of care.
Anticipated Discharge: > 48 hours
Subjective/Interval History
-
Date of Service: August 29, 2024
denies pain
Objective Data
-
Labs:
Laboratory Results
08/29/24
08:12
WBC 7.9
Hgb 10.7 L
Hct 31.8 L
Plt Count 98 L D
Sodium 145
Potassium 2.9 L
Chloride 113 H
Carbon Dioxide 21 L
BUN 24 H
Creatinine 1.4 H
Glucose 95
Calcium 8.5
Vital Signs:
Vital Signs
Temp Pulse Resp BP Pulse Ox
98.4 F 71 22 133/76 97
08/29/24 07:00 08/29/24 07:00 08/29/24 07:00 08/29/24 11:23 08/29/24 07:00
I&O
08/28/24 08/29/24 08/30/24
06:59 06:59 06:59
Intake Total 1790 / 1790 840 / 840
Output Total 400 / 400 860 / 860
Balance 1390 / 1390 -20 / -20
[2024-08-29] MEDS: LASIX 20 MG IV (11:52)
[2024-08-29 15:00] VITALS: BP 171/92
[2024-08-29] MEDS: HEPARIN 5000 UNITS SC (19:55)
[2024-08-29 21:02] VITALS: BP 147/74
[2024-08-29] MEDS: SINEMET 25-250 2 TABLET PO (21:16)
[2024-08-29] MEDS: REQUIP 4 MG PO (21:18)
[2024-08-29] MEDS: ROCEPHIN 1000 MG IV (22:05)
[2024-08-29] MEDS: STERILE WATER FOR INJECTION 10 ML IV (22:06)
[2024-08-29 23:38] VITALS: BP 144/68
[2024-08-30] VITALS (8 sets, daily range): BP systolic 97–185; BP diastolic 56–101; BMI 17.8
[2024-08-30] MEDS: FLAGYL 500 MG 100 IV (05:25)
[2024-08-30] MEDS: HEPARIN 5000 UNITS SC ×2 (07:16→21:00)
[2024-08-30] MEDS: FLORINEF 0.1 MG PO ×2 (07:16→21:00)
[2024-08-30] MEDS: KCL ELIXIR 20 MEQ PO (07:16)
[2024-08-30] MEDS: SINEMET 25-100 1 TABLET PO ×3 (07:16→16:01)
[2024-08-30] MEDS: PACERONE 100 MG PO ×2 (07:17→21:00)
[2024-08-30] MEDS: ProAmatine PO ×2 (07:20→15:56)
[2024-08-30 07:23] LABS: % Basophils 0.3 % (0-2); % Immature Granulocytes 1.2 % (0-0.5); % Lymphocytes 13.8 % (20.5-51.1); % Monocytes 14.3 % (1.7-9.3); % Neutrophils 69.4 % (42.2-75.2); Absolute Eosinophils 0.1 10^3/uL (0-0.7); Absolute Immature Granulocytes 0.1 10^3/uL (0-0.05); Absolute Lymphocytes 0.8 10^3/uL (1.2-3.4); Absolute Monocytes 0.8 10^3/uL (0.1-0.6); Blood Urea Nitrogen 23 mg/dl (9-20); Calcium 8.7 mg/dl (8.4-10.2); Carbon Dioxide 24 mmol/L (22-30); Chloride 115 mmol/L (98-107); Estimated Creatinine Clearance 33 ml/min; Glucose 103 mg/dl (70-99); Hematocrit 30.7 % (39.0-52.0); Hemoglobin 10.2 g/dL (13.0-18.0); Mean Corp Hgb Conc. 33.2 g/dL (33.0-37.0); Mean Corpuscular Hgb 29.7 pg (27.0-31.0); Mean Corpuscular Volume 89.2 fL (80.0-94.0); Mean Platelet Volume 12.1 fL (7.4-10.4); Nucleated Red Blood Cells % 0 % (-); Platelet Count 110 10^3/uL (130-400); Potassium 3.7 mmol/L (3.5-5.1); Red Blood Cell Count 3.44 10^6/uL (4.70-6.10); Red Cell Dist. Width 14.2 % (11.5-14.5); Sodium 148 mmol/L (135-145); White Blood Cell Count 5.8 10^3/uL (4.8-10.8); eGFR 55.88
[2024-08-30] MEDS: ProAmatine 5 MG PO (11:48)
--- NOTE | 2024-08-30 11:57 | W.PN.HOSP.TC ---
Addendum entered and electronically signed by Yakov Gupta MD 08/30/24 13:17:
CODE STATUS was discussed with patient and spouse. Wants to remain full code
Original Note:
Today's Communication/Plan
-
Monitor vitals
See plan
Sodium higher today, would not start IV fluids at this time as recent fluid overload
Now auto diuresing
Switch antibiotics to oral
Discharge planning, patient and family now appears to be interested in SNF
Assessment / Plan
Assessment / Plan
General: Other (78y M with marked thoracic kyphosis. In no acute distress.)
HEENT: Anicteric, pink conjunctiva
Respiratory: Decreased at bases, mild Rales
Cardiac: S1/S2 and Regular Rhythm
GI: non tender,non distended
Musculoskeletal: No Edema
Neuro: AO x 3
Colitis
Sepsis secondary to the above
- Patient presents with fever, leukocytosis and diarrhea with CT scan showing colitis - mostly L sided.
- No recent abx use or known sick contacts.
- Continue abx for presumed infectious colitis for now. switch to PO
- stool studies so far not significant
- possibility of ischemic colitis - especially given issues with chronic hypotension.
- Follow-up with GI outpatient
- Follow for clinical improvement
now improving and on LRD
Renal insufficiency, MARY or MARY on CKD
Continue to monitor creatinine
unknown baseline
Hyperkalemia
Monitor
Would not start patient on IV fluids just yet as recent fluid overload
Hypokalemia
resolved
Acute hypoxic respiratory sufficiency suspect 2/2 interstitial edema
Hypertensive emergency; dose of IV hydralazine
check bnp >[id number]
check echo with preserved EF; pulmonary HTN
trial of lasix; improving; now autodiuresing; depends on his weight and symptoms might need daily or as needed lasix
on 2-3L; wean o2 as tolerated
- ? related to kyphosis / etc.
Parkinson's Disease
Orthostatic Hypotension
RLS
- Has known orthostatic hypotension on chronic midodrine and fludrocortisone.
- Continue usual Sinemet dosing without changes.
- Continue usual midodrine / Florinef with holding parameter
-Avoid hypotension / hypoperfusion.
- Continue ropinirole.
Intermittent urinary retention
With high postvoid residual, suspect possibly has neurogenic bladder
bladder scan prn
Paroxysmal Atrial Fibrillation
- Stable. Maintaining sinus rhythm.
- Continue amiodarone.
- Patient is not on chronic OAC.
DVT Prophylaxis: SCDs,heparin
Code Status: Full
Anticipated Discharge: Within 24 hours
Subjective/Interval History
-
Date of Service: August 30, 2024
denies pain
Objective Data
-
Labs:
Laboratory Results
08/29/24 08/30/24
22:30 06:38
WBC 5.8
Hgb 10.2 L
Hct 30.7 L
Plt Count 110 L
Sodium Cancelled 148 H
Potassium Cancelled 3.7 D
Chloride Cancelled 115 H
Carbon Dioxide Cancelled 24
BUN Cancelled 23 H
Creatinine Cancelled 1.3
Glucose Cancelled 103 H
Calcium Cancelled 8.7
Vital Signs:
Vital Signs
Temp Pulse Resp BP Pulse Ox
97.9 F 72 18 97/56 98
08/30/24 11:00 08/30/24 11:00 08/30/24 11:00 08/30/24 11:00 08/30/24 11:00
I&O
08/29/24 08/30/24 08/31/24
06:59 06:59 06:59
Intake Total 840 / 840 480 / 480
Output Total 860 / 860 250 / 250
Balance -20 / -20 230 / 230
[2024-08-30] MEDS: OMNICEF 300 MG PO ×2 (12:48→21:00)
[2024-08-30] MEDS: APRESOLINE 5 MG IV (15:57)
[2024-08-30] MEDS: FLAGYL 500 MG PO ×2 (15:57→21:00)
[2024-08-30] MEDS: REQUIP 4 MG PO (21:00)
[2024-08-30] MEDS: SINEMET 25-250 2 TABLET PO (21:00)
[2024-08-31] VITALS (8 sets, daily range): BP systolic 131–179; BP diastolic 73–98; PULSE 66; O2SAT 93; BMI 17.8
--- NOTE | 2024-08-31 07:48 | W.PN.HOSP.TC ---
Addendum entered and electronically signed by Galo Rodriguez DO 09/01/24 12:10:
CDI #2:
-Stage I heel and middle back pressure injury, POA
-Other
Addendum entered and electronically signed by Galo Rodriguez DO 09/01/24 10:57:
CDI: CKD stage II, underweight
Original Note:
Today's Communication/Plan
-
;/
Assessment / Plan
Assessment / Plan
Assessment/plan
#Sepsis secondary to left-sided colitis
-Etiology likely ischemic colitis
-No recent ABX use, no known sick contacts
-Fever, leukocytosis and diarrhea on presentation
-CT abdomen�Markedly limited evaluation as a result of numerous factors, as detailed above with findings highly suspicious for COLITIS, particularly left-sided colitis. No intestinal obstruction or free air.
-GI consulted, input appreciated
-Stool studies negative so far
-Initiated on antibiotics
-Continue cefdinir and metronidazole
-Continue to follow clinically
#Acute hypoxic respiratory insufficiency likely secondary to interstitial pulmonary edema pattern with small bilateral pleural effusions.
-CXR- There are diffusely increased interstitial markings with indistinctness of the central pulmonary vasculature, findings highly suggestive of interstitial pulmonary edema pattern, most likely on the basis of congestive failure.
-Echocardiogram 08/28�LVEF 60-65%. Normal left ventricular size and function. Normal regional wall motion, pulmonary hypertension
-Received trial of Lasix
-Wean O2 as tolerated
-proBNP 10,900
-Weight stable
#MARY on CKD
-Resolved with IV fluids
#Hypokalemia
-Replete
#Parkinson's Disease
-Continue Sinemet, ropinirole
#History of chronic orthostatic Hypotension
-Continue midodrine/Florinef with holding parameters
#Restless leg syndrome
-Continue on ropinirole
#Intermittent urinary retention
-With high postvoid residual, suspect possibly has neurogenic bladder
-bladder scan prn
Paroxysmal Atrial Fibrillation
-Currently in normal sinus rhythm
-Rate control with amiodarone
-Patient not on chronic anticoagulation
CODE STATUS; full code
DVT prophylaxis heparin
Anticipated Discharge: 24 - 48 hours
Subjective/Interval History
-
Patient seen and examined at bedside. He denies acute complaint. Denies shortness of breath
Objective Data
-
Labs:
Laboratory Results
08/31/24
07:28
WBC Pending
Hgb Pending
Hct Pending
Plt Count Pending
Sodium Pending
Potassium Pending
Chloride Pending
Carbon Dioxide Pending
BUN Pending
Creatinine Pending
Glucose Pending
Calcium Pending
Vital Signs:
Vital Signs
Temp Pulse Resp BP Pulse Ox
98 F 63 22 131/76 93
08/31/24 03:09 08/31/24 03:09 08/31/24 03:09 08/31/24 03:09 08/31/24 03:09
I&O
08/30/24 08/31/24 09/01/24
06:59 06:59 06:59
Intake Total 480 / 480 480 / 480
Output Total 250 / 250
Balance 230 / 230 480 / 480
Review of Systems
-
All other systems: Reviewed and negative (Except as documented)
Physical Exam
-
General: No Apparent Distress
Respiratory: Rales (Mild) and Decreased Breath Sounds; Negative Wheezes
Cardiac: Regular Rhythm and S1/S2
GI: Soft, Nontender, Nondistended and Normal Bowel Sounds
Musculoskeletal: No Edema
Neuro: Awake, Alert, Oriented and AO x 3
Psych: Calm
[2024-08-31 08:10] LABS: % Basophils 0.2 % (0-2); % Eosinophils 2.5 % (0-6); % Immature Granulocytes 1.3 % (0-0.5); % Lymphocytes 15.2 % (20.5-51.1); % Monocytes 12.5 % (1.7-9.3); % Neutrophils 68.3 % (42.2-75.2); Absolute Eosinophils 0.2 10^3/uL (0-0.7); Absolute Immature Granulocytes 0.1 10^3/uL (0-0.05); Absolute Lymphocytes 0.9 10^3/uL (1.2-3.4); Absolute Monocytes 0.7 10^3/uL (0.1-0.6); Absolute Neutrophils 4.1 10^3/uL (1.4-6.5); Hematocrit 32.8 % (39.0-52.0); Hemoglobin 10.8 g/dL (13.0-18.0); Mean Corp Hgb Conc. 32.9 g/dL (33.0-37.0); Mean Corpuscular Hgb 29.5 pg (27.0-31.0); Mean Corpuscular Volume 89.6 fL (80.0-94.0); Mean Platelet Volume 11.3 fL (7.4-10.4); Nucleated Red Blood Cells % 0 % (-); Platelet Count 122 10^3/uL (130-400); Red Blood Cell Count 3.66 10^6/uL (4.70-6.10); Red Cell Dist. Width 14.1 % (11.5-14.5); White Blood Cell Count 5.9 10^3/uL (4.8-10.8)
[2024-08-31 08:37] LABS: Blood Urea Nitrogen 23 mg/dl (9-20); Calcium 8.9 mg/dl (8.4-10.2); Carbon Dioxide 24 mmol/L (22-30); Chloride 114 mmol/L (98-107); Estimated Creatinine Clearance 38 ml/min; Glucose 87 mg/dl (70-99); Potassium 3.3 mmol/L (3.5-5.1); Sodium 146 mmol/L (135-145); eGFR > 60.00
[2024-08-31] MEDS: PACERONE 100 MG PO ×2 (08:43→19:59)
[2024-08-31] MEDS: FLORINEF 0.1 MG PO ×2 (08:44→19:58)
[2024-08-31] MEDS: KCL ELIXIR 20 MEQ PO (08:44)
[2024-08-31] MEDS: OMNICEF 300 MG PO ×2 (08:44→19:59)
[2024-08-31] MEDS: ProAmatine 15 MG PO (08:44)
[2024-08-31] MEDS: FLAGYL 500 MG PO ×3 (08:44→21:43)
[2024-08-31] MEDS: HEPARIN 5000 UNITS SC ×2 (08:44→19:59)
[2024-08-31] MEDS: SINEMET 25-100 1 TABLET PO ×3 (08:45→16:47)
[2024-08-31] MEDS: KCL 40 MEQ PO (08:54)
--- NOTE | 2024-08-31 11:23 | CM ---
Addendum entered by Celena Mcneil 08/31/24 16:33:
Will submit updated PT/OT notes when available.
Original Note:
biofuels operations manager reviewed patient's chart and met with patient and spouse this am, and patient is agreeable to skilled placement at [facility], referral sent to [facility] and they have accepted patient.
Plan; Skilled placement at [facility] when patient is medically stable, patient will need ambulance transport through [facility].
[2024-08-31] MEDS: ProAmatine 5 MG PO ×2 (12:05→16:47)
--- NOTE | 2024-08-31 14:41 | W.DCSUMMARY ---
Documented by User: Kuldip Mahoney MD, Resident 09/01/24 12:08
Discharge Summary
Discharge Data
Date of Admission: 08/26/24
Date of Discharge: 09/01/24
-
Pending Results: No
Hospital Course
Brief Hospital course; Patient is a 78y M with PMH significant for Parkinson's disease and paroxysmal A-fib who presented to ED 08/26 complaining of diarrhea x 2 days. Patient reported loose stools and fecal incontinence x 2 days. He denied any
black or bloody stools. Laboratory on presentation with WBC 30.6, Hgb 12.0, platelet 98. BUN 51, creatinine 1.9, lactic acid 2.8. He was evaluated with abdominal CT scan which showed Markedly limited evaluation as a result of numerous factors, as
detailed above with findings highly suspicious for COLITIS, particularly left-sided colitis. No intestinal obstruction or free air. Evaluation for abnormal focal fluid collection markedly limited. Stool studies have been negative to date. Patient
was started on antibiotics for presumed infectious colitis. There was also a question of ischemic colitis given he has a history of hypotension. On the second day of hospitalization, patient's symptoms started to improve with ceftriaxone and
metronidazole IV. Was eventually transitioned to oral antibiotics. Patient tolerated advancement of diet during his hospital stay. He is required to follow-up with GI as an outpatient.
MARY; on presentation, his creatinine level was elevated at 1.9. His typical baseline is 1.0. MARY episode resolved with IV fluids. He is required to repeat BMP in 5 to 7 days
Echocardiogram 08/28/2024
CONCLUSIONS
Normal left ventricular size and function. Normal regional wall motion. Mild
concentric left ventricular hypertrophy. LV ejection fraction is 60-65% by
Ayala's method of discs. Diastolic function indeterminate.
Normal right ventricular size and function.
Thickened mitral valve leaflets. Mild mitral regurgitation.
Moderate tricuspid regurgitation. Estimated pulmonary artery pressure of 50-55
mmHg. Assuming a right atrial pressure of 3 mmHg.
Compared to the previous echo 06/06/22, the PA pressure has increased from 35 to
50 mmHg.
Discharge Plan
-
Patient Disposition: Halfway/SNF
Discharge Diagnosis/Procedures: Sepsis secondary to left-sided colitis
MARY
Acute hypoxic respiratory insufficiency likely secondary to interstitial pulmonary edema
Condition: Fair
Diet: As tolerated
Blood Work: BMP in 5-7days. receive script from PCP
Others Tests: Will need a colonoscopy in 6 to 8 weeks if patient able to tolerate. Follow up with GI
Referrals:
Rashard Zhu MD [Family Provider, [facility]] - in one to two days
Maria Ines Finney MD [Active, Gastroenterology]
Referral Note: call to schedule 3-4 week follow up with Colitis to discuss colonoscopy. [phone] ext [phone].
Additional Discharge Medication Instructions: Continue antibiotics till 09/05 to complete 7 days total
Use imodium Q4HPRN for 3 days then stop due to H/O chronic constipation
Prescriptions:
New
metronidazole 500 mg Tablet
500 mg PO TID Qty: 15 0RF
cefdinir 300 mg Capsule
300 mg PO Q12 Qty: 10 0RF
loperamide [Imodium A-D] 2 mg capsule
2 mg PO Q4H PRN (Reason: loose stool) Qty: 30 0RF
Continued
magnesium oxide 500 MG tablet
250 mg PO DAILY
ascorbic acid (vitamin C) [Vitamin C] 500 mg Tablet
500 mg PO DAILY
cyanocobalamin (vitamin B-12) [Vitamin B-12] 1,000 mcg Tablet
1,000 mcg PO DAILY
acetaminophen [Tylenol Extra Strength] 500 mg Tablet
1,000 mg PO TIDPRN PRN (Reason: mild pain)
fludrocortisone 0.1 mg tablet
0.1 mg PO BID
ropinirole 4 mg tablet
4 mg PO HS Qty: 30 0RF
Rx Instructions:
every other day
carbidopa-levodopa 25-250 mg Tablet
2 tab PO HS
midodrine 5 mg Tablet
15 mg PO DAILY
potassium chloride 20 mEq/15 mL Liquid
20 meq PO DAILY
calcium carbonate-vitamin D3 [Calcium 600 + D(3)] 600 mg-10 mcg (400 unit) Tablet
0.5 tab PO DAILY
amiodarone [Pacerone] 200 mg tablet
100 mg PO BID
sennosides-docusate sodium [Stool Softener-Stimulant Laxat] 8.6-50 mg tablet
1 tab PO QPM
midodrine 5 mg tablet
5 mg PO TID@1300,1800
carbidopa-levodopa 25-100 mg Tablet
1 tab PO TID@0800,1100,1700
Discharge Orders:
Discharge Patient (As Directed); Ordered 09/01/24
Ordered By: Kuldip Mahoney
Discharge Date and Time
Print Language: GAMBIAN

Documented by User: Galo Rodriguez DO 09/01/24 14:17
Discharge Summary
Discharge Data
Date of Admission: 08/26/24
Date of Discharge: 09/01/24
Total time spent discharging patient (in min): 31
Discharge Plan
-
Patient Disposition: Halfway/SNF
Discharge Diagnosis/Procedures: Sepsis secondary to left-sided colitis
MARY
Acute hypoxic respiratory insufficiency likely secondary to interstitial pulmonary edema
Condition: Fair
Diet: As tolerated
Blood Work: BMP in 5-7days. receive script from PCP
Others Tests: Will need a colonoscopy in 6 to 8 weeks if patient able to tolerate. Follow up with GI
Referrals:
Bagnick,Rashard F., MD [Family Provider, Family Practice] - in one to two days
Maria Ines Finney MD [Active, Gastroenterology]
Referral Note: call to schedule 3-4 week follow up with Colitis to discuss colonoscopy. [phone] ext [phone].
Additional Discharge Medication Instructions: Continue antibiotics till 09/05 to complete 7 days total
Use imodium Q4HPRN for 3 days then stop due to H/O chronic constipation
Prescriptions:
New
metronidazole 500 mg Tablet
500 mg PO TID Qty: 15 0RF
cefdinir 300 mg Capsule
300 mg PO Q12 Qty: 10 0RF
loperamide [Imodium A-D] 2 mg capsule
2 mg PO Q4H PRN (Reason: loose stool) Qty: 30 0RF
Continued
magnesium oxide 500 MG tablet
250 mg PO DAILY
ascorbic acid (vitamin C) [Vitamin C] 500 mg Tablet
500 mg PO DAILY
cyanocobalamin (vitamin B-12) [Vitamin B-12] 1,000 mcg Tablet
1,000 mcg PO DAILY
acetaminophen [Tylenol Extra Strength] 500 mg Tablet
1,000 mg PO TIDPRN PRN (Reason: mild pain)
fludrocortisone 0.1 mg tablet
0.1 mg PO BID
ropinirole 4 mg tablet
4 mg PO HS Qty: 30 0RF
Rx Instructions:
every other day
carbidopa-levodopa 25-250 mg Tablet
2 tab PO HS
midodrine 5 mg Tablet
15 mg PO DAILY
potassium chloride 20 mEq/15 mL Liquid
20 meq PO DAILY
calcium carbonate-vitamin D3 [Calcium 600 + D(3)] 600 mg-10 mcg (400 unit) Tablet
0.5 tab PO DAILY
amiodarone [Pacerone] 200 mg tablet
100 mg PO BID
sennosides-docusate sodium [Stool Softener-Stimulant Laxat] 8.6-50 mg tablet
1 tab PO QPM
midodrine 5 mg tablet
5 mg PO TID@1300,1800
carbidopa-levodopa 25-100 mg Tablet
1 tab PO TID@0800,1100,1700
Discharge Orders:
Discharge Patient (As Directed); Ordered 09/01/24
Ordered By: Kuldip Mahoney
Discharge Date and Time
Print Language: GAMBIAN
[2024-08-31] MEDS: REQUIP 4 MG PO (21:43)
[2024-08-31] MEDS: SINEMET 25-250 2 TABLET PO (21:47)
[2024-09-01 07:02] LABS: % Basophils 0.3 % (0-2); % Eosinophils 1.9 % (0-6); % Immature Granulocytes 1.5 % (0-0.5); % Lymphocytes 14.3 % (20.5-51.1); % Monocytes 12.8 % (1.7-9.3); % Neutrophils 69.2 % (42.2-75.2); Absolute Eosinophils 0.1 10^3/uL (0-0.7); Absolute Immature Granulocytes 0.1 10^3/uL (0-0.05); Absolute Lymphocytes 0.9 10^3/uL (1.2-3.4); Absolute Monocytes 0.8 10^3/uL (0.1-0.6); Absolute Neutrophils 4.3 10^3/uL (1.4-6.5); Hematocrit 31.8 % (39.0-52.0); Hemoglobin 10.5 g/dL (13.0-18.0); Mean Corpuscular Hgb 29.6 pg (27.0-31.0); Mean Corpuscular Volume 89.6 fL (80.0-94.0); Mean Platelet Volume 11.1 fL (7.4-10.4); Nucleated Red Blood Cells % 0 % (-); Platelet Count 142 10^3/uL (130-400); Red Blood Cell Count 3.55 10^6/uL (4.70-6.10); White Blood Cell Count 6.2 10^3/uL (4.8-10.8)
--- NOTE | 2024-09-01 07:06 | W.PN.HOSP.TC ---
Today's Communication/Plan
-
;/
Assessment / Plan
Assessment / Plan
Assessment/plan
#Sepsis secondary to left-sided colitis
-Etiology likely ischemic colitis
-No recent ABX use, no known sick contacts
-Fever, leukocytosis and diarrhea on presentation
-CT abdomen�Markedly limited evaluation as a result of numerous factors, as detailed above with findings highly suspicious for COLITIS, particularly left-sided colitis. No intestinal obstruction or free air.
-GI consulted, input appreciated
-Stool studies negative so far
-Initiated on antibiotics
-Continue cefdinir and metronidazole
-Continue to follow clinically
#Acute hypoxic respiratory insufficiency likely secondary to interstitial pulmonary edema pattern with small bilateral pleural effusions vs deconditioning.
-CXR- There are diffusely increased interstitial markings with indistinctness of the central pulmonary vasculature, findings highly suggestive of interstitial pulmonary edema pattern, most likely on the basis of congestive failure.
-Echocardiogram 6/6�LVEF 60-65%. Normal left ventricular size and function. Normal regional wall motion, pulmonary hypertension
-Received trial of Lasix
-Weaned off oxygen
-proBNP 10,900
-Weight stable
-PT/OT
#MARY on CKD II
-Resolved with IV fluids
#Hypokalemia
-Replete
#Parkinson's Disease
-Continue Sinemet, ropinirole
#History of chronic orthostatic Hypotension
-Continue midodrine/Florinef with holding parameters
#Restless leg syndrome
-Continue on ropinirole
#Intermittent urinary retention
-With high postvoid residual, suspect possibly has neurogenic bladder
-bladder scan prn
Paroxysmal Atrial Fibrillation
-Currently in normal sinus rhythm
-Rate control with amiodarone
-Patient not on chronic anticoagulation
#Underweight BMI 17.8
CODE STATUS; full code
DVT prophylaxis heparin SQ
Anticipated Discharge: Today
Subjective/Interval History
-
Patient seen and examined at bedside without acute complaints.
Objective Data
-
Labs:
Laboratory Results
09/01/24
06:26
WBC 6.2
Hgb 10.5 L
Hct 31.8 L
Plt Count 142
Sodium Pending
Potassium Pending
Chloride Pending
Carbon Dioxide Pending
BUN Pending
Creatinine Pending
Glucose Pending
Calcium Pending
Vital Signs:
Vital Signs
Temp Pulse Resp BP Pulse Ox
98.1 F 75 16 146/79 97
08/31/24 23:20 08/31/24 23:20 08/31/24 23:20 08/31/24 23:20 08/31/24 23:20
I&O
08/31/24 09/01/24 09/02/24
06:59 06:59 06:59
Intake Total 480 / 480 540 / 540
Output Total 100 / 100
Balance 480 / 480 440 / 440
Review of Systems
-
All other systems: Reviewed and negative (Except as documented)
Physical Exam
-
General: No Apparent Distress
Respiratory: Clear to Auscultation
Cardiac: Regular Rhythm and S1/S2
GI: Soft, Nontender, Nondistended and Normal Bowel Sounds
Musculoskeletal: No Edema
Neuro: Awake, Alert, Oriented and AO x 3
Psych: Calm
[2024-09-01 07:34] LABS: Blood Urea Nitrogen 24 mg/dl (9-20); Calcium 8.7 mg/dl (8.4-10.2); Carbon Dioxide 24 mmol/L (22-30); Chloride 115 mmol/L (98-107); Estimated Creatinine Clearance 38 ml/min; Glucose 85 mg/dl (70-99); Potassium 3.3 mmol/L (3.5-5.1); Sodium 144 mmol/L (135-145); eGFR > 60.00
[2024-09-01 08:14] VITALS: BP 148/95
[2024-09-01] MEDS: KCL ELIXIR 20 MEQ PO (08:14)
[2024-09-01] MEDS: FLAGYL 500 MG PO ×2 (08:14→15:08)
[2024-09-01] MEDS: PACERONE 100 MG PO (08:15)
[2024-09-01] MEDS: OMNICEF 300 MG PO (08:19)
[2024-09-01] MEDS: HEPARIN 5000 UNITS SC (08:20)
[2024-09-01] MEDS: FLORINEF 0.1 MG PO (08:20)
[2024-09-01] MEDS: ProAmatine PO ×3 (08:21→15:06)
[2024-09-01] MEDS: SINEMET 25-100 1 TABLET PO ×2 (08:23→12:25)
--- NOTE | 2024-09-01 09:21 | WOUNDNOTE ---
[facility] RN note: Patient seen for HAPI report for stage 1 heel and middle back pressure injury. Heels and mid back blanchable mild red and intact. Coccyx blanchable dull red and intact. He has a very bony coccyx. Patient incontinent of loose brown
stool. Leslie care given and underpad changed with help from DAYANNA Killian. Protective foam applied to heels. Sacral shaped silicone border foam applied to sacral/coccyx. Heels off bed with pillow and air chair cushion. Instructed patient to take air
chair cushion when discharged.
[2024-09-01 09:28] LABS: Magnesium 1.8 mg/dl (1.6-2.3)
[2024-09-01] MEDS: KCL 40 MEQ PO (10:18)
--- NOTE | 2024-09-01 10:48 | PN.CDI ---
CDI
- -
CDI:
Physician Documentation Request
Admit Date: 08/26/24 21:26
Dear Doctor Denzel
08/31 hospitalist progress note includes a diagnosis of 'MARY on CKD'
eGFR results:
Laboratory Tests
08/26/24 08/26/24 08/27/24
15:12 17:46 07:05
eGFR 35.44 40.50 37.82
08/28/24 08/30/24 09/01/24
07:40 06:38 06:26
eGFR 51.13 55.88 > 60.00
Please clarify which of the following accurately represents the patient's CKD
Stages of Chronic Kidney Disease*
Level Description GFR
G1 Normal or High >90
G2 Mildly decreased 60-89
G3a Mildly to moderately decreased 45-59
G3b Moderately to severely decreased 30-44
G4 Severely decreased 15-29
G5 Kidney failure <15
Other-please specify
Use of terms such as suspected, likely, concern for, or probable (associated with a specific diagnosis that is being evaluated, monitored, or treated as if it exists) are acceptable and can be coded in the inpatient setting, when documented at the
time of discharge.
Thank you,
Promise Rothman RN, BSN
CDI Specialist
tiger text
Please use your independent medical judgment in providing your response.
*Source: Kidney Disease: Improving Global Outcomes (KDIGO) 2012
--- NOTE | 2024-09-01 10:53 | PN.CDI ---
CDI
- -
CDI:
Physician Documentation Request
Admit Date: 08/26/24 21:26
Dear Doctor Denzel
Please review the following and provide your response in the progress notes.
Clinical Indicators:
Height: 5 ft 6 inches
Weight: 110 (08/31)
BMI: 17.8 (08/31)
Other Clinical Notes:09/01 note states ' BMI 17.8 (underweight)
Please provide an associated diagnosis related to the abnormal BMI:
BMI < or = to 19
Underweight
Weight Loss
Cachectic
Anorexia
- BMI is not significant
- Other
Use of terms such as suspected, likely, concern for, or probable (associated with a specific diagnosis that is being evaluated, monitored, or treated as if it exists) are acceptable and can be coded in the inpatient setting, when documented at the
time of discharge.
Thank you,
Promise Rothman RN, BSN
CDI Specialist
tiger text
Please use your independent medical judgment in providing your response.
--- NOTE | 2024-09-01 10:56 | PN.CDI ---
CDI
- -
CDI:
Physician Documentation Request
Admit Date: 08/26/24 21:26
Dear Doctor Denzel,
08/31 hospitalist progress note states 'CXR...... findings highly suggestive of interstitial pulmonary edema pattern, most likely on the basis of congestive failure.'
Patient received trial of IV Lasix, x 2
08/28 echo report indicates an EF of 60-65%
08/28 BNP 44520
Please provide further specificity regarding the most likely type and acuity of CHF you are evaluating, treating or monitoring.
Type Acuity
Systolic Acute
Diastolic Chronic
Combined Systolic/Diastolic Acute on Chronic
Other other
Use of terms such as suspected, likely, concern for, or probable (associated with a specific diagnosis that is being evaluated, monitored, or treated as if it exists) are acceptable and can be coded in the inpatient setting, when documented at the
time of discharge.
Thank you,
Promise Rothman RN, BSN
CDI Specialist
tiger text
Please use your independent medical judgment in providing your response.
--- NOTE | 2024-09-01 11:02 | PN.CDI ---
CDI
- -
CDI:
Physician Documentation Request
Admit Date: 08/26/24 21:26
Dear Doctor Denzel,
09/01 WOCN note states 'Patient seen for HAPI report for stage 1 heel and middle back pressure injury'
Physician documentation of the type and location of wounds is required for compliant documentation. Based on the above clinical findings and your assessment, please provide the following in your progress note:
1. Location of the ulcer/wound, including laterality.
2. Type (etiology) of ulcer/wound:
- Traumatic wound
- Pressure (decubitus) ulcer
- Other
Use of terms such as suspected, likely, concern for, or probable (associated with a specific diagnosis that is being evaluated, monitored, or treated as if it exists) are acceptable and can be coded in the inpatient setting, when documented at the
time of discharge.
Thank you,
Promise Rothman RN, BSN
CDI Specialist
tiger text
Please use your independent medical judgment in providing your response.
*Source: National Pressure Ulcer Advisory Panel (NPUAP)
--- NOTE | 2024-09-01 11:13 | CM ---
Patient has been approved for skilled placement at [facility] today, Auth received for 4 days skilled 09/01-09/04, NRD 09/04, Auth [id number] follow up with concurrent review by calling [phone], ambulance Auth [id number], call placed to patient's
spouse, patient has a 3pm pick up attendant by ambulance.
[facility] skilled today at 3pm
Report [phone]
[2024-09-01 13:57] VITALS: BP 175/97
== END 2024-09-01 16:43 | DRG 872 ==
LOC: 4 WEST ACU 21:26
PROVIDERS: Internal Medicine; Physician Assistant Medical; Student in an Organized Health Care Education/Training Program; ADMITTING PHYSICIAN Hospitalist; ATTENDING PHYSICIAN Internal Medicine; EMERGENCY PHYSICIAN Emergency Medicine; FAMILY PHYSICIAN Family Medicine; OTHER PHYSICIAN Internal Medicine Gastroenterology
DX: A41.9 Sepsis, unspecified organism (principal); N17.9 Acute kidney failure, unspecified; K51.50 Left sided colitis without complications; A09 Infectious gastroenteritis and colitis, unspecified; Z68.1 Body mass index [BMI] 19.9 or less, adult; J81.1 Chronic pulmonary edema; D61.818 Other pancytopenia; R09.02 Hypoxemia; E87.6 Hypokalemia; L89.601 Pressure ulcer of unspecified heel, stage 1; L89.101 Pressure ulcer of unspecified part of back, stage 1; I95.1 Orthostatic hypotension; G25.81 Restless legs syndrome; N31.9 Neuromuscular dysfunction of bladder, unspecified; N39.498 Other specified urinary incontinence; I48.0 Paroxysmal atrial fibrillation; R63.6 Underweight; G20.A1 Parkinson's disease without dyskinesia, without mention of fluctuations; Z88.0 Allergy status to penicillin; Z86.0100 Personal history of colon polyps, unspecified; Z80.0 Family history of malignant neoplasm of digestive organs; Z79.899 Other long term (current) drug therapy; E78.00 Pure hypercholesterolemia, unspecified; K21.9 Gastro-esophageal reflux disease without esophagitis; N40.1 Benign prostatic hyperplasia with lower urinary tract symptoms
CPT/HCPCS: 71045; 71046; 74177; 80048; 80053; 82248; 83605; 83735; 83880; 84443; 85025; 85027; 85610; 85730; 86803; 86850; 86900; 86901; 87040; 87045; 87046; 87324; 87328; 87329; 87427; 87449; 89055; 93005; 93306; 94640; 96361; 96365; 97163; 97167; 97530; 97535; 99291; Q9967

== ENCOUNTER → 2024-09-04 11:55 | Outpatient (REF) | payer OTHER, SELFPAY ==
[2024-09-04 12:59] LABS: % Basophils 0.3 % (0-2); % Eosinophils 0.3 % (0-6); % Monocytes 17.2 % (1.7-9.3); % Neutrophils 72.2 % (42.2-75.2); Absolute Immature Granulocytes 0.1 10^3/uL (0-0.05); Absolute Lymphocytes 1.3 10^3/uL (1.2-3.4); Absolute Monocytes 2.4 10^3/uL (0.1-0.6); Absolute Neutrophils 10.2 10^3/uL (1.4-6.5); Hematocrit 33.8 % (39.0-52.0); Mean Corp Hgb Conc. 32.5 g/dL (33.0-37.0); Mean Corpuscular Hgb 29.5 pg (27.0-31.0); Mean Corpuscular Volume 90.6 fL (80.0-94.0); Mean Platelet Volume 11.9 fL (7.4-10.4); Nucleated Red Blood Cells % 0 % (-); Platelet Count 194 10^3/uL (130-400); Red Blood Cell Count 3.73 10^6/uL (4.70-6.10); Red Cell Dist. Width 14.3 % (11.5-14.5); White Blood Cell Count 14.2 10^3/uL (4.8-10.8)
[2024-09-04 13:14] LABS: Blood Urea Nitrogen 29 mg/dl (9-20); Carbon Dioxide 23 mmol/L (22-30); Chloride 112 mmol/L (98-107); Glucose 76 mg/dl (70-99); Sodium 143 mmol/L (135-145); eGFR 43.56
== END ==
LOC: OLABP 11:55
PROVIDERS: ATTENDING PHYSICIAN Family Medicine
DX: A41.9 Sepsis, unspecified organism (principal); K51.519 Left sided colitis with unspecified complications; N17.9 Acute kidney failure, unspecified; K92.2 Gastrointestinal hemorrhage, unspecified; J81.0 Acute pulmonary edema; I48.0 Paroxysmal atrial fibrillation; J96.00 Acute respiratory failure, unspecified whether with hypoxia or hypercapnia; I95.1 Orthostatic hypotension
CPT/HCPCS: 36415; 80048; 85025

== ENCOUNTER → 2024-09-09 11:34 | Outpatient (REF) | payer OTHER, SELFPAY ==
[2024-09-09 12:37] LABS: Blood Urea Nitrogen 25 mg/dl (9-20); Calcium 8.7 mg/dl (8.4-10.2); Carbon Dioxide 22 mmol/L (22-30); Chloride 111 mmol/L (98-107); Glucose 85 mg/dl (70-99); Potassium 4.3 mmol/L (3.5-5.1); Sodium 140 mmol/L (135-145); eGFR 51.13
[2024-09-09 12:42] LABS: % Basophils 0.1 % (0-2); % Eosinophils 1.7 % (0-6); % Immature Granulocytes 0.5 % (0-0.5); % Lymphocytes 6.4 % (20.5-51.1); % Monocytes 14.9 % (1.7-9.3); % Neutrophils 76.4 % (42.2-75.2); Absolute Eosinophils 0.2 10^3/uL (0-0.7); Absolute Lymphocytes 0.6 10^3/uL (1.2-3.4); Absolute Monocytes 1.3 10^3/uL (0.1-0.6); Absolute Neutrophils 6.7 10^3/uL (1.4-6.5); Hematocrit 34.7 % (39.0-52.0); Hemoglobin 11.4 g/dL (13.0-18.0); Mean Corp Hgb Conc. 32.9 g/dL (33.0-37.0); Mean Corpuscular Hgb 29.2 pg (27.0-31.0); Mean Corpuscular Volume 88.7 fL (80.0-94.0); Mean Platelet Volume 11.9 fL (7.4-10.4); Nucleated Red Blood Cells % 0 % (-); Platelet Count 151 10^3/uL (130-400); Red Blood Cell Count 3.91 10^6/uL (4.70-6.10); Red Cell Dist. Width 14.9 % (11.5-14.5); White Blood Cell Count 8.8 10^3/uL (4.8-10.8)
== END ==
LOC: OLABP 11:34
PROVIDERS: ATTENDING PHYSICIAN Family Medicine
DX: J81.0 Acute pulmonary edema (principal); A41.9 Sepsis, unspecified organism; K51.519 Left sided colitis with unspecified complications; N17.9 Acute kidney failure, unspecified; K92.2 Gastrointestinal hemorrhage, unspecified; I48.0 Paroxysmal atrial fibrillation; J96.00 Acute respiratory failure, unspecified whether with hypoxia or hypercapnia; I95.1 Orthostatic hypotension
CPT/HCPCS: 36415; 80048; 85025